=== PATIENT | male | born 1960 | race Caucasian/White ===

== ENCOUNTER 2016-04-07 21:10 | Emergency (ER) | payer OTHER ==
[~2016-04-07 21:10] MED LIST: FURO1TAB93 PO; LACT20SO4 PO; NADO1TAB16 PO; OMEP20TA39 PO; OXYC5 PO; PREG100 PO; RIFA550 PO; SERT-132 PO; SPIR25 PO; VARE1 PO
[2016-04-07 21:15] VITALS: BP 125/70; PULSE 70; RESP 20; TEMP 98.1; O2SAT 94
[2016-04-07] MEDS ORDERED: SODIUM CHLORIDE 0.9% FLUSH 5 ML FLUSH IVF PRN (21:30)
--- NOTE | 2016-04-07 21:47 | RADRPT ---
EXAM DATE/TIME: 04/07/2016 21:36 [place] COMPARISON: CHEST SINGLE AP, December 23, 2015, 12:25. INDICATIONS : Shortness of breath. MEDICAL HISTORY : None. SURGICAL HISTORY : None. ENCOUNTER: Initial ACUITY: 1 day PAIN SCORE: 0/10 LOCATION: Bilateral chest FINDINGS: The heart size is normal. There is some mild increased density identified at the bases . The mid and upper lungs are clear. No effusion is seen. There is an anterior cervical fusion karlos te present. CONCLUSION: Minimally increased density identified at the bases likely representing some mild ate lectasis or consolidation. Yassine Hermosillo MD on April 07, 2016 at 21:43 Board Certified Radiologist. This report was verified electronically.
[2016-04-07 22:02] LABS: APTT (PATIENT) 29.5 SEC (24.3-30.1); INTERNATIONAL NORMALIZED RATIO 1.2 RATIO; PROTHROMBIN TIME - PATIENT 13.5 SEC (9.8-11.6)
[2016-04-07 22:20] LABS: AUTOMATED NEUTROPHIL # 2.2 TH/MM3 (1.8-7.7); BASOPHIL # 0.1 TH/MM3 (0-0.2); BASOPHIL % 2.2 % (0.0-2.0); EOSINOPHIL # 0.5 TH/MM3 (0-0.4); EOSINOPHIL % 9.7 % (0.0-4.0); HEMATOCRIT 44.4 % (39.0-51.0); LYMPH % 39.3 % (9.0-44.0); LYMPHOCYTE # 2.2 TH/MM3 (1.0-4.8); MEAN CORPUSCULAR HEMOGLOBIN 32.2 PG (27.0-34.0); MEAN CORPUSCULAR HGB CONC 34.6 % (32.0-36.0); NEUT % 39.8 % (16.0-70.0); PLATELET COUNT 80 TH/MM3 (150-450); RED BLOOD COUNT 4.77 MIL/MM3 (4.50-5.90); RED CELL DISTRIBUTION WIDTH 14.5 % (11.6-17.2); WHITE BLOOD COUNT 5.6 TH/MM3 (4.0-11.0)
[2016-04-07 22:27] LABS: HEMO FLAGS AUTO DIFF
[2016-04-07] MEDS ORDERED: LYRI100C PO (22:36)
[2016-04-07] MEDS ORDERED: AMPH1TAB29 PO (22:36)
[2016-04-07 22:38] LABS: ALKALINE PHOSPHATASE 319 U/L (45-117); ALT (GPT) 20 U/L (12-78); ANION GAP 11 MEQ/L (5-15); AST (GOT) 29 U/L (15-37); BICARBONATE 23.7 MEQ/L (21.0-32.0); BLOOD UREA NITROGEN 5 MG/DL (7-18); CHLORIDE 105 MEQ/L (98-107); GLOMERULAR FILTRATION RATE 95 ML/MIN (>89); POTASSIUM 3.6 MEQ/L (3.5-5.1); SODIUM (NA) 140 MEQ/L (136-145); TOTAL BILIRUBIN ADULT 1.5 MG/DL (0.2-1.0)
[2016-04-07 22:40] LABS: BLOOD, URINE NEG (NEG); COMMENT (UR) CATH-CULT NOT IND; CULTURE IF INDICATED CATH CULTURE NOT IND; GLUCOSE,URINE NEG (NEG); KETONE, URINE NEG (NEG); NITRITE,URINE NEG (NEG); URINE COLOR YELLOW (YELLW/STRAW)
[2016-04-07 22:45] LABS: ACETAMINOPHEN LESS THAN 2.0 MCG/ML (10.0-30.0)
[2016-04-07 23:00] VITALS: BP 107/61; PULSE 70; RESP 16; O2SAT 93
[2016-04-07 23:20] LABS: PLATELET ESTIMATE SMEAR LOW (NORMAL); SCAN/DIFF AUTO DIFF CONFIRMED
[2016-04-07 23:30] VITALS: BP 119/58; PULSE 58; RESP 14; O2SAT 89
[2016-04-08 02:07] VITALS: BP 129/67; PULSE 61; RESP 14; O2SAT 96
--- NOTE | 2016-04-08 02:17 | PD ---
HPI Chief Complaint: OD/ Ingestion Time Seen by Provider: 21:22 Travel History International Travel<30 days: No Contact w/Intl Traveler<30days: No Traveled to known affect area: No History of Present Illness HPI Patient 55-year-old male presents today intoxicated on Cooper act for intentional suicide attempt with overdose of Lyrica. Per EMS Lyrica bottle was found on scene and the patient is missing approximately 44 pills. Unclear as to whether he took all these are once has been taking them as prescribed. On arrival patient pleasantly intoxicated and has no complaints currently. Denies any chest pain about pain nausea vomiting diarrhea. He does have a history of liver disease well. 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 Coronary Artery Bypass Graft: No Insulin Pump: No Joint Replacement: No Neurologic Surgery: Yes (Spinal fusions C3-C7, neck and lower back x5) Oral Surgery: Yes (Tooth extractions) Pacemaker: No Tonsillectomy: Yes Other Surgery: Yes (LOW BACK SURGERY X 2) Family History Family Myocardial Infarction: Yes Social History Alcohol Use: Yes (1/2 GALLON DAILY) Tobacco Use: Yes (1 PPD) Substance Use: Yes (MARIJUANA, COCAINE, HEROIN) Allergies-Medications (Allergen,Severity, Reaction): Coded Allergies: Gabapentin (Verified Adverse Reaction, Severe, 04/07/16) Reported Meds & Prescriptions Reported Meds & Active Scripts Active Reported Adderall (Amphetamine-Dextroamphetamine) 5 Mg Tab 5 Mg PO BID Avoid late evening doses. Space doses at least 4 to 6 hours if more than once/day dosing. Lyrica (Pregabalin) 100 Mg Cap 100 Mg PO BID Review of Systems Except as stated in HPI: all other systems reviewed are Neg Physical Exam Narrative GENERAL: Well-developed well-nourished no apparent distress, pleasantly intoxicated. SKIN: Warm and dry. HEAD: Atraumatic. Normocephalic. EYES: Pupils equal and round. No scleral icterus. No injection or drainage. ENT: No nasal bleeding or discharge. Mucous membranes pink and moist. NECK: Trachea midline. No JVD. CARDIOVASCULAR: Regular rate and rhythm. No murmur appreciated. RESPIRATORY: No accessory muscle use. Clear to auscultation. Breath sounds equal bilaterally. GASTROINTESTINAL: Abdomen soft, non-tender, nondistended. Hepatic and splenic margins not palpable. MUSCULOSKELETAL: No obvious deformities. No clubbing. No cyanosis. No edema. NEUROLOGICAL: Awake and alert. No obvious cranial nerve deficits. Motor grossly within normal limits. Normal speech. PSYCHIATRIC: Appropriate mood and affect; insight and judgment normal. Data Data Last Documented VS Vital Signs Date Time Temp Pulse Resp B/P Pulse Ox O2 Delivery O2 Flow Rate FiO2 04/08/16 11:23 82 18 126/66 100 04/08/16 11:06 Room Air 04/08/16 02:07 1 04/07/16 21:15 98.1 Orders Electrocardiogram (04/07/16 21:22) Alcohol (Ethanol) (04/07/16 21:22) Ammonia (04/07/16 21:22) Complete Blood Count With Diff (04/07/16 21:22) Comprehensive Metabolic Panel (04/07/16 21:22) Drug Screen, Random Urine (04/07/16 21:22) Prothrombin Time / Inr (Pt) (04/07/16 21:22) Act Partial Throm Time (Ptt) (04/07/16 21:22) Salicylates (Aspirin) (04/07/16 21:22) Troponin I (04/07/16 21:22) Tylenol (Acetaminophen) (04/07/16 21:22) Thyroid Stimulating Hormone (04/07/16 21:22) Urinalysis - C+S If Indicated (04/07/16 21:22) Chest, Single Ap (04/07/16 21:22) Blood Glucose (04/07/16 21:22) Ecg Monitoring (04/07/16 21:22) Iv Access Insert/Monitor (04/07/16 21:22) Oximetry (04/07/16 21:22) Sodium Chloride 0.9% Flush (Ns Flush) (04/07/16 21:30) Psych Screen (04/08/16 02:17) Chlordiazepoxide (Librium) (04/08/16 09:30) Acetaminophen (Tylenol) (04/08/16 09:30) Alcohol Withdrawal Asmt-Ciwa [id number] (04/08/16 10:31) Flumazenil Inj (Romazicon Inj) (04/08/16 10:45) Lorazepam (Ativan) (04/08/16 10:45) Lorazepam Inj (Ativan Inj) (04/08/16 10:45) Lorazepam (Ativan) (04/08/16 10:45) Lorazepam Inj (Ativan Inj) (04/08/16 10:45) Lorazepam Inj (Ativan Inj) (04/08/16 10:45) Lorazepam Inj (Ativan Inj) (04/08/16 10:45) ^ Seizure Precautions (04/08/16 10:38) Labs Laboratory Tests Test 04/07/16 04/07/16 04/07/16 21:30 21:38 22:00 White Blood Count 5.6 TH/MM3 Red Blood Count 4.77 MIL/MM3 Hemoglobin 15.3 GM/DL Hematocrit 44.4 % Mean Corpuscular Volume 93.0 FL Mean Corpuscular Hemoglobin 32.2 PG Mean Corpuscular Hemoglobin 34.6 % Concent Red Cell Distribution Width 14.5 % Platelet Count 80 TH/MM3 Mean Platelet Volume 8.2 FL Neutrophils (%) (Auto) 39.8 % Lymphocytes (%) (Auto) 39.3 % Monocytes (%) (Auto) 9.0 % Eosinophils (%) (Auto) 9.7 % Basophils (%) (Auto) 2.2 % Neutrophils # (Auto) 2.2 TH/MM3 Lymphocytes # (Auto) 2.2 TH/MM3 Monocytes # (Auto) 0.5 TH/MM3 Eosinophils # (Auto) 0.5 TH/MM3 Basophils # (Auto) 0.1 TH/MM3 CBC Comment AUTO DIFF Differential Comment AUTO DIFF CONFIRMED Platelet Estimate LOW Sodium Level 140 MEQ/L Potassium Level 3.6 MEQ/L Chloride Level 105 MEQ/L Carbon Dioxide Level 23.7 MEQ/L Anion Gap 11 MEQ/L Blood Urea Nitrogen 5 MG/DL Creatinine 0.83 MG/DL Estimat Glomerular Filtration 95 ML/MIN Rate Random Glucose 203 MG/DL Calcium Level 7.9 MG/DL Total Bilirubin 1.5 MG/DL Aspartate Amino Transf 29 U/L (AST/SGOT) Alanine Aminotransferase 20 U/L (ALT/SGPT) Alkaline Phosphatase 319 U/L Troponin I LESS THAN 0.02 NG/ML Total Protein 7.6 GM/DL Albumin 3.1 GM/DL Thyroid Stimulating Hormone 2.250 uIU/ML 3rd Gen Salicylates Level LESS THAN 1.7 MG/DL Acetaminophen Level LESS THAN 2.0 MCG/ML Ethyl Alcohol Level 216 MG/DL Prothrombin Time 13.5 SEC Prothromb Time International 1.2 RATIO Ratio Activated Partial 29.5 SEC Thromboplast Time Ammonia 91 MCMOL/L Urine Color YELLOW Urine Turbidity CLEAR Urine pH 6.0 Urine Specific [place] 1.006 Urine Protein NEG mg/dL Urine Glucose (UA) NEG mg/dL Urine Ketones NEG mg/dL Urine Occult Blood NEG Urine Nitrite NEG Urine Bilirubin NEG Urine Urobilinogen 2.0 MG/DL Urine Leukocyte Esterase NEG Urine RBC LESS THAN 1 /hpf Urine WBC 1 /hpf Microscopic Urinalysis Comment CATH-CULT NOT IND Urine Opiates Screen NEG Urine Barbiturates Screen NEG Urine Amphetamines Screen NEG Urine Benzodiazepines Screen NEG Urine Cocaine Screen NEG Urine Cannabinoids Screen NEG MDM Medical Decision Making Medical Screen Exam Complete: Yes Emergency Medical Condition: Yes Differential Diagnosis Lyrica overdose, intoxication, hepatic encephalopathy unlikely, suicidal attempt. Narrative Course Physical 55-year-old male presents emergency department for alcohol intoxication and intentional overdose of Lyrica. Patient had approximate 44 pills missing from the Lyrica bottle. Patient denies any other ingestion tonight. He is been observed in the emergency department for 5-1/2 hours. After discussion with poison control this appears to be an adequate amount of time to observe him. He is medically cleared for psychiatric evaluation at this time. Diagnosis Primary Impression: Overdose Additional Impression: Suicide attempt Condition: Stable Coleman Stahl MD Apr 08, 2016 02:17
[2016-04-08 04:00] VITALS: BP 113/62; PULSE 66; RESP 20; O2SAT 95
[2016-04-08 04:17] LABS: AMPHETAMINE, URINE NEG (NEG); BARBITURATES, URINE NEG (NEG); COCAINE, URINE NEG (NEG)
[2016-04-08 06:00] VITALS: BP 133/79; PULSE 61; RESP 18; O2SAT 96
[2016-04-08 09:24] VITALS: BP 149/68; PULSE 79; RESP 18; O2SAT 100
[2016-04-08] MEDS ORDERED: chlordiazePOXIDE 25 MG CAP PO PRN (09:30)
[2016-04-08] MEDS: ACETAMINOPHEN 500 MG CPLT PO ONE ×2 (09:30→09:32)
[2016-04-08] MEDS ORDERED: LORazepam 2 MG TAB PO PRN (10:45)
[2016-04-08] MEDS ORDERED: LORazepam 2 MG/ML VIAL IM PRN ×4 (10:45)
[2016-04-08] MEDS ORDERED: FLUMAZENIL 0.5 MG/5 ML VIAL IV PUSH PRN (10:45)
[2016-04-08] MEDS ORDERED: LORazepam 1 MG TAB PO PRN (10:45)
[2016-04-08 11:06] VITALS: BP 146/86; PULSE 79; RESP 18; O2SAT 100
[2016-04-08 11:23] VITALS: BP 126/66
--- NOTE | 2016-04-08 13:00 | MB ---
cc: ALESSANDRO MOJICA DATE OF CONSULTATION: 04/08/2016 PHYSICIAN REQUESTING CONSULTATION: Emergency department. REASON FOR CONSULTATION: Cooper ACT HISTORY OF PRESENT ILLNESS Mr. Zayas is a 55-year-old male with a reported history of alcohol dependence who presents under a Cooper ACT from [place] [employer] alleging that the patient stated that he took 60 pills and did not want to live anymore. Reviewing the electronic medical record, I see no prior psychiatric contact within our system. Of note the patient's alcohol level was elevated on presentation here at 216. The patient was seen and examined. Chart reviewed. Case discussed with nursing staff. In fact, the patient appears to have overdose on Lyrica. On my examination this morning the patient is clinically sober and beginning to withdraw. He says that he had gotten into an argument with his and had been drinking heavily and so "I filled my mouth with pills. I do remember. I am sick of all this bullshit. I cannot get no help." He endorses ongoing thoughts of self-harm. Mood is depressed. Affect is dysphoric. Denies current AVH but has experienced AVH in the past. No evident delusions. No hypomanic, manic symptoms. The remainder of the psychiatric ROS is negative. PAST PSYCHIATRIC HISTORY Prior diagnosis of alcohol dependence. He sees a female psychiatrist at the [place] but cannot recall a name. He says he was admitted 17 years ago after an overdose on pills and alcohol. He reports that in addition to that suicide attempt, he also tried to shoot of self in his 40s. FAMILY HISTORY The patient denies family history of serious mental illness or suicide. His mother reportedly struggled with alcohol use issues. CHEMICAL DEPENDENCY HISTORY: The patient reports he has been drinking a gallon of rum per day. His last use was just prior to admission. He reports a history of DTs and seizures in the past. His longest sober time was 11 years with the help of AA. He also smokes some cannabis. 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 SOCIAL HISTORY The patient reports he has a [employer] . He never saw combat having joint after [place]. He is to his second of 10 years. He has a son in [place]. He also has a grandson. Denies any legal history. He is high school educated and presently on disability. Denies any access to guns or firearms. PAST MEDICAL HISTORY Includes a history of hepatitis C status post treatment with [facility]. He also has a history of vertebral back fractures in the past. REVIEW OF SYSTEMS Besides tremulousness and sweatiness from withdrawal, no other acute physical complaints. PHYSICAL EXAMINATION Physical examination was completed in the emergency room by the ER staff. The patient was medically cleared. On my examination today, the patient appears tremulous and diaphoretic. No mydriasis. No other signs of withdrawal noted. No other abnormal motor movements noted. Labs and vital signs reviewed. MENTAL STATUS EXAM The patient is in hospital gown. He is somewhat disheveled but maintaining basic hygiene. He is awake, alert and oriented x3. No evidence of delirium. Motoric abnormalities as noted above. Speech is within normal limits for rate, tone and volume. Language and fund of knowledge seem adequate and appropriate for age. Mood is depressed and affect is restricted. Thought process linear. No loosening of associations. No evident delusions. Denies audiovisual hallucinations. Endorses ongoing suicidal ideation without specific plan or intent. No homicidal ideation. Insight and judgment are poor. ASSESSMENT/PLAN 1. Alcohol dependence with alcohol-induced mood disorder, S1 0.24 This is a 55-year-old male with psychiatric history as detailed above who presents under Cooper ACT after making an overdose of Lyrica in the setting of alcohol intoxication. The patient endorses some vague ongoing suicidal thoughts as well as depressive symptoms, I suspect largely substance-induced. The patient does have severe alcohol use issues. I believe therefore that are treatment should focus on both of these issues both his mood and alcohol use issues. I therefore instructed the nursing staff to refer the patient to a dual diagnosis unit and the patient has been accepted at the [facility]. The patient will be retained under the Cooper ACT until transport can be arranged to the [facility]. In the meantime I will place him on a CIWA scale with Ativan for the management of any withdrawal. Thank you very much for this consultation. Alessandro Mojica DC/alen /10:35 AM /12:53 PM [facility] SYSTEMBenjamin
--- NOTE | 2016-04-08 14:21 | EKG ---
Date Performed: 04/07/2016 Time Performed: 21:13:51 PTAGE: 55 years EKG: Sinus rhythm POSSIBLE LEFT ATRIAL ENLARGEMENT INCOMPLETE RIGHT BUNDLE BRANCH BLOCK POSSIBLE LEFT VENTRICULAR HYPE RTROPHY ABNORMAL ECG Compared to prior tracing no significant change PREVIOUS TRACING : 12/23/2015 18.55 DOCTOR: Jackson Tracy Interpretating Date/Time 04/08/2016 14:17:59
== END 2016-04-08 11:28 | disposition short-term general hospital (02) ==
LOC: NEPC 21:10 → NEPA 04-08 11:28
DX: T42.6X2A Poisoning by other antiepileptic and sedative-hypnotic drugs, intentional self-harm, initial encounter (principal); F32.9 Major depressive disorder, single episode, unspecified; R06.02 Shortness of breath; F17.210 Nicotine dependence, cigarettes, uncomplicated; F10.24 Alcohol dependence with alcohol-induced mood disorder; Y90.7 Blood alcohol level of 200-239 mg/100 ml
CPT/HCPCS: 71010; 80053; 80307; 81001; 82140; 84443; 84484; 85025; 85610; 85730; 93005; 99284; G0480; 80320; 80329; G0481

== ENCOUNTER 2016-07-04 08:22 | Emergency (ER) | payer OTHER ==
[~2016-07-04] VITALS: Ht 180.3 cm; Wt 97.0 kg
[~2016-07-04 08:22] MED LIST changes: +AMPH1TAB29 PO; -FURO1TAB93 PO; -LACT20SO4 PO; +LYRI100C PO; -NADO1TAB16 PO; -OMEP20TA39 PO; -OXYC5 PO; -PREG100 PO; -RIFA550 PO; -SERT-132 PO; -SPIR25 PO; -VARE1 PO
[2016-07-04 08:38] VITALS: BP 126/79; PULSE 74; RESP 18; TEMP 98.2; O2SAT 94
--- NOTE | 2016-07-04 08:49 | PD ---
HPI Chief Complaint: Psychiatric Symptoms Time Seen by Provider: 08:40 Travel History International Travel<30 days: No Contact w/Intl Traveler<30days: No Traveled to known affect area: No History of Present Illness HPI The patient is a 55-year-old male who presents emergency department as a Cooper act. According to the police affidavit the patient is experiencing suicidal ideation. The patient does have a history of depression with previous suicidal ideation and suicide attempt by overdosing on alcohol and pain medications. The patient states he has been drinking heavily over the last several days, vodka and beer. The patient is having thoughts of suicide, however, does not have an actual suicidal plan. The patient also smokes marijuana occasionally. The patient denies any hallucinations or delusions. The patient's symptoms are moderate, there are no alleviating or exacerbating factors. 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 Coronary Artery Bypass Graft: No Insulin Pump: No Joint Replacement: No Neurologic Surgery: Yes (Spinal fusions C3-C7, neck and lower back x5) Oral Surgery: Yes (Tooth extractions) Pacemaker: No Tonsillectomy: Yes Other Surgery: Yes (LOW BACK SURGERY X 2) Family History Family Myocardial Infarction: Yes Social History Alcohol Use: Yes (1/2 GALLON DAILY) Tobacco Use: Yes (1 PPD) Substance Use: Yes (MARIJUANA, COCAINE, HEROIN) Allergies-Medications (Allergen,Severity, Reaction): Coded Allergies: Gabapentin (Verified Adverse Reaction, Severe, 04/07/16) Reported Meds & Prescriptions Reported Meds & Active Scripts Active Reported Adderall (Amphetamine-Dextroamphetamine) 5 Mg Tab 5 Mg PO BID Avoid late evening doses. Space doses at least 4 to 6 hours if more than once/day dosing. Lyrica (Pregabalin) 100 Mg Cap 100 Mg PO BID Review of Systems Except as stated in HPI: all other systems reviewed are Neg General / Constitutional: No: Fever Cardiovascular: No: Chest Pain or Discomfort Respiratory: No: Shortness of Breath Gastrointestinal: Positive: Other (history of hepatitis C, cared via treatment per patient's report), No: Nausea, Vomiting, Abdominal Pain Psychiatric: Positive: Depression, Suicidal Ideations, Substance Abuse ( alcohol abuse), No: Homicidal Ideation Physical Exam Narrative GENERAL: Awake, alert, 55-year-old male who appears his stated age and is in no acute respiratory distress. SKIN: Focused skin assessment warm/dry. HEAD: Atraumatic. Normocephalic. EYES: Pupils are 4 mm bilateral and reactive. ENT: No nasal bleeding or discharge. Breath smells of alcohol. NECK: Trachea midline. No JVD. CARDIOVASCULAR: Regular rate and rhythm. No murmur appreciated. RESPIRATORY: No accessory muscle use. Clear to auscultation. Breath sounds equal bilaterally. GASTROINTESTINAL: Abdomen soft, obese, hepatomegaly noted. No rebound tenderness. MUSCULOSKELETAL: No obvious deformities. No clubbing. No cyanosis. No edema. NEUROLOGICAL: Awake and alert. No obvious cranial nerve deficits. Motor grossly within normal limits. Normal speech. No asterixis noted. Nonfocal. PSYCHIATRIC: Slightly flat affect. Data Data Last Documented VS Vital Signs Date Time Temp Pulse Resp B/P Pulse Ox O2 Delivery O2 Flow Rate FiO2 07/04/16 08:38 73 18 07/04/16 08:38 98.2 126/79 94 Room Air Orders Complete Blood Count With Diff (07/04/16 08:45) Comprehensive Metabolic Panel (07/04/16 08:45) Psych Screen (07/04/16 08:45) Drug Screen, Random Urine (07/04/16 08:45) Alcohol (Ethanol) (07/04/16 08:45) Labs Laboratory Tests Test 07/04/16 08:48 White Blood Count 5.3 TH/MM3 Red Blood Count 4.80 MIL/MM3 Hemoglobin 15.1 GM/DL Hematocrit 45.0 % Mean Corpuscular Volume 93.9 FL Mean Corpuscular Hemoglobin 31.5 PG Mean Corpuscular Hemoglobin 33.5 % Concent Red Cell Distribution Width 15.6 % Platelet Count 84 TH/MM3 Mean Platelet Volume 7.3 FL Neutrophils (%) (Auto) 47.5 % Lymphocytes (%) (Auto) 31.5 % Monocytes (%) (Auto) 10.4 % Eosinophils (%) (Auto) 10.0 % Basophils (%) (Auto) 0.6 % Neutrophils # (Auto) 2.5 TH/MM3 Lymphocytes # (Auto) 1.7 TH/MM3 Monocytes # (Auto) 0.5 TH/MM3 Eosinophils # (Auto) 0.5 TH/MM3 Basophils # (Auto) 0.0 TH/MM3 CBC Comment AUTO DIFF Sodium Level 139 MEQ/L Potassium Level 3.9 MEQ/L Chloride Level 106 MEQ/L Carbon Dioxide Level 22.9 MEQ/L Anion Gap 10 MEQ/L Blood Urea Nitrogen 5 MG/DL Creatinine 0.77 MG/DL Estimat Glomerular Filtration 104 ML/MIN Rate Random Glucose 159 MG/DL Calcium Level 8.3 MG/DL Total Bilirubin 1.2 MG/DL Aspartate Amino Transf 37 U/L (AST/SGOT) Alanine Aminotransferase 27 U/L (ALT/SGPT) Alkaline Phosphatase 219 U/L Total Protein 7.7 GM/DL Albumin 3.3 GM/DL Urine Opiates Screen NEG Urine Barbiturates Screen NEG Urine Amphetamines Screen NEG Urine Benzodiazepines Screen NEG Urine Cocaine Screen NEG Urine Cannabinoids Screen NEG Ethyl Alcohol Level 232 MG/DL MDM Medical Decision Making Medical Screen Exam Complete: Yes Emergency Medical Condition: Yes Medical Record Reviewed: Yes Interpretation(s) Laboratory Tests Test 07/04/16 08:48 White Blood Count 5.3 TH/MM3 Red Blood Count 4.80 MIL/MM3 Hemoglobin 15.1 GM/DL Hematocrit 45.0 % Mean Corpuscular Volume 93.9 FL Mean Corpuscular Hemoglobin 31.5 PG Mean Corpuscular Hemoglobin 33.5 % Concent Red Cell Distribution Width 15.6 % Platelet Count 84 TH/MM3 Mean Platelet Volume 7.3 FL Neutrophils (%) (Auto) 47.5 % Lymphocytes (%) (Auto) 31.5 % Monocytes (%) (Auto) 10.4 % Eosinophils (%) (Auto) 10.0 % Basophils (%) (Auto) 0.6 % Neutrophils # (Auto) 2.5 TH/MM3 Lymphocytes # (Auto) 1.7 TH/MM3 Monocytes # (Auto) 0.5 TH/MM3 Eosinophils # (Auto) 0.5 TH/MM3 Basophils # (Auto) 0.0 TH/MM3 CBC Comment AUTO DIFF Sodium Level 139 MEQ/L Potassium Level 3.9 MEQ/L Chloride Level 106 MEQ/L Carbon Dioxide Level 22.9 MEQ/L Anion Gap 10 MEQ/L Blood Urea Nitrogen 5 MG/DL Creatinine 0.77 MG/DL Estimat Glomerular Filtration 104 ML/MIN Rate Random Glucose 159 MG/DL Calcium Level 8.3 MG/DL Total Bilirubin 1.2 MG/DL Aspartate Amino Transf 37 U/L (AST/SGOT) Alanine Aminotransferase 27 U/L (ALT/SGPT) Alkaline Phosphatase 219 U/L Total Protein 7.7 GM/DL Albumin 3.3 GM/DL Urine Opiates Screen NEG Urine Barbiturates Screen NEG Urine Amphetamines Screen NEG Urine Benzodiazepines Screen NEG Urine Cocaine Screen NEG Urine Cannabinoids Screen NEG Ethyl Alcohol Level 232 MG/DL Differential Diagnosis Differential diagnosis includes depressive disorder NOS, bipolar affective disorder, mood disorder NOS, substance induced mood disorder, alcohol abuse. Narrative Course Labs were drawn and sent. Psychiatric evaluation was ordered. Labs were noted , bilirubin mildly elevated at 1.2, patient does have a history of hepatitis C and cirrhosis. Patient's alcohol level is elevated at 232. Patient is medically clear to be evaluated by psychiatry. Disposition as per psych. Diagnosis Primary Impression: Substance induced mood disorder Additional Impression: Alcohol abuse Condition: Stable Lang Chan MD Jul 04, 2016 08:49
[2016-07-04 09:05] LABS: AUTOMATED NEUTROPHIL # 2.5 TH/MM3 (1.8-7.7); BASOPHIL % 0.6 % (0.0-2.0); EOSINOPHIL # 0.5 TH/MM3 (0-0.4); LYMPH % 31.5 % (9.0-44.0); LYMPHOCYTE # 1.7 TH/MM3 (1.0-4.8); MEAN CELL VOLUME 93.9 FL (80.0-100.0); MEAN CORPUSCULAR HEMOGLOBIN 31.5 PG (27.0-34.0); MEAN CORPUSCULAR HGB CONC 33.5 % (32.0-36.0); MONO % 10.4 % (0.0-8.0); NEUT % 47.5 % (16.0-70.0); PLATELET COUNT 84 TH/MM3 (150-450); RED CELL DISTRIBUTION WIDTH 15.6 % (11.6-17.2); WHITE BLOOD COUNT 5.3 TH/MM3 (4.0-11.0)
[2016-07-04 09:09] LABS: HEMO FLAGS AUTO DIFF
[2016-07-04 09:14] LABS: AMPHETAMINE, URINE NEG (NEG); BARBITURATES, URINE NEG (NEG); COCAINE, URINE NEG (NEG)
[2016-07-04 09:21] LABS: ANION GAP 10 MEQ/L (5-15); AST (GOT) 37 U/L (15-37); BICARBONATE 22.9 MEQ/L (21.0-32.0); BLOOD UREA NITROGEN 5 MG/DL (7-18); CHLORIDE 106 MEQ/L (98-107); GLOMERULAR FILTRATION RATE 104 ML/MIN (>89); POTASSIUM 3.9 MEQ/L (3.5-5.1); SODIUM (NA) 139 MEQ/L (136-145)
[2016-07-04 09:24] LABS: ALKALINE PHOSPHATASE 219 U/L (45-117); ALT (GPT) 27 U/L (12-78); TOTAL BILIRUBIN ADULT 1.2 MG/DL (0.2-1.0)
[2016-07-04 09:46] LABS: PLATELET ESTIMATE SMEAR LOW (NORMAL); PLATELET MORPHOLOGY NORMAL (NORMAL); SCAN/DIFF AUTO DIFF CONFIRMED
[2016-07-04 10:31] VITALS: BP 105/59; PULSE 67; RESP 18; O2SAT 95
[2016-07-04] MEDS ORDERED: oxyCODONE/ACETAMINOPHEN 5 MG/325 MG TAB PO ONE (11:00)
[2016-07-04 12:37] VITALS: BP 103/65; PULSE 63; RESP 18; O2SAT 95
[2016-07-04 17:31] VITALS: BP 133/71; PULSE 66; RESP 18; TEMP 96.8; O2SAT 95
[2016-07-04] MEDS ORDERED: LORazepam 2 MG/ML VIAL IV PUSH PRN ×4 (18:45)
[2016-07-04] MEDS ORDERED: LORazepam 2 MG TAB PO PRN (18:45)
[2016-07-04] MEDS ORDERED: FLUMAZENIL 0.5 MG/5 ML VIAL IV PUSH PRN (18:45)
[2016-07-04] MEDS: LORazepam 1 MG TAB PO PRN (19:49)
[2016-07-04 22:12] VITALS: BP 135/64; PULSE 69; RESP 18; O2SAT 95
[2016-07-05 02:14] VITALS: BP 140/73; PULSE 65; RESP 19; O2SAT 95
[2016-07-05 06:34] VITALS: BP 130/60; PULSE 64; RESP 19; O2SAT 97
[2016-07-05] MEDS: LORazepam 1 MG TAB PO PRN (10:38)
== END 2016-07-05 14:10 ==
LOC: NEPE 08:22 → NEPJ 07-05 14:10
DX: F10.14 Alcohol abuse with alcohol-induced mood disorder (principal); Y90.7 Blood alcohol level of 200-239 mg/100 ml; F32.9 Major depressive disorder, single episode, unspecified; K74.60 Unspecified cirrhosis of liver; Z72.0 Tobacco use
CPT/HCPCS: 80053; 80307; 85025; 99284

== ENCOUNTER 2016-10-16 06:49 | Emergency (ER) | payer OTHER ==
[~2016-10-16] VITALS: Ht 175.3 cm; Wt 100.0 kg
[~2016-10-16 06:49] MED LIST changes: -LYRI100C PO
[2016-10-16 06:59] VITALS: BP 135/86; PULSE 85; RESP 18; TEMP 98.1; O2SAT 95
--- NOTE | 2016-10-16 08:07 | PD ---
HPI Chief Complaint: Medical Clearance Time Seen by Provider: 07:15 Travel History International Travel<30 days: No Contact w/Intl Traveler<30days: No Traveled to known affect area: No History of Present Illness HPI 56-year-old male brought in under [employer] act by enforcement. According to the paperwork patient was at [facility] when TSH inspection found 3 pills on the patient. While the police were interviewing the patient he reported having a previous history of opiate abuse for his chronic pain. He also reports history of alcoholism. According to the paperwork while he was being interviewed the patient gave a lengthy mental health history which included several suicide attempts in the past. This prompted the police to feel that he needed evaluation today. He did not state that he was suicidal or homicidal according to the paperwork. He denies homicidal or suicidal ideation to myself. He reports the pills were Bono was 5//25 which she received from a friend and he was going to take them if he had back pain on the flight. He reports that he was going to visit a friend in [place] where he was hoping to get his life back in order. Patient reports he is a and receives mental [facility] care from the [facility]. He denies any alcohol use. He reports taking one of the Bono was 5/325 today. No other drug use. 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 Coronary Artery Bypass Graft: No Insulin Pump: No Joint Replacement: No Neurologic Surgery: Yes (Spinal fusions C3-C7, neck and lower back x5) Oral Surgery: Yes (Tooth extractions) Pacemaker: No Tonsillectomy: Yes Other Surgery: Yes (LOW BACK SURGERY X 2) Family History Family Myocardial Infarction: Yes Social History Alcohol Use: No (FORMER- SOBER 31 DAYS) Tobacco Use: Yes (1/3 PPD) Substance Use: Yes (MARIJUANA) Allergies-Medications (Allergen,Severity, Reaction): Coded Allergies: Gabapentin (Verified Adverse Reaction, Severe, 10/16/16) Reported Meds & Prescriptions Reported Meds & Active Scripts Active Reported Adderall (Amphetamine-Dextroamphetamine) 5 Mg Tab 5 Mg PO BID Avoid late evening doses. Space doses at least 4 to 6 hours if more than once/day dosing. Review of Systems Except as stated in HPI: all other systems reviewed are Neg Psychiatric: No: Depression Physical Exam Narrative GENERAL: Well-nourished, well-developed patient. Patient does not appear intoxicated or impaired. SKIN: Focused skin assessment warm/dry. HEAD: Normocephalic. EYES: No scleral icterus. No injection or drainage. NECK: Supple, trachea midline. No JVD or lymphadenopathy. CARDIOVASCULAR: Regular rate and rhythm without murmurs, gallops, or rubs. RESPIRATORY: Breath sounds equal bilaterally. No accessory muscle use. GASTROINTESTINAL: Abdomen soft, non-tender, nondistended. MUSCULOSKELETAL: No cyanosis, or edema. BACK: Nontender without obvious deformity. No CVA tenderness. PSYCHIATRIC: No delusional thought processes. No hallucinations. Insight and judgment intact. Data Data Last Documented VS Vital Signs Date Time Temp Pulse Resp B/P Pulse Ox O2 Delivery O2 Flow Rate FiO2 10/16/16 07:03 91 18 10/16/16 06:59 98.1 135/86 95 Orders Complete Blood Count With Diff (10/16/16 07:57) Comprehensive Metabolic Panel (10/16/16 07:57) Drug Screen, Random Urine (10/16/16 07:57) Alcohol (Ethanol) (10/16/16 07:57) Salicylates (Aspirin) (10/16/16 07:57) Tylenol (Acetaminophen) (10/16/16 07:57) Labs Laboratory Tests Test 10/16/16 08:10 White Blood Count 4.6 TH/MM3 Red Blood Count 4.73 MIL/MM3 Hemoglobin 15.0 GM/DL Hematocrit 43.5 % Mean Corpuscular Volume 92.0 FL Mean Corpuscular Hemoglobin 31.6 PG Mean Corpuscular Hemoglobin 34.4 % Concent Red Cell Distribution Width 13.9 % Platelet Count 70 TH/MM3 Mean Platelet Volume 7.3 FL Neutrophils (%) (Auto) 62.1 % Lymphocytes (%) (Auto) 22.3 % Monocytes (%) (Auto) 7.1 % Eosinophils (%) (Auto) 4.3 % Basophils (%) (Auto) 4.2 % Neutrophils # (Auto) 2.8 TH/MM3 Lymphocytes # (Auto) 1.0 TH/MM3 Monocytes # (Auto) 0.3 TH/MM3 Eosinophils # (Auto) 0.2 TH/MM3 Basophils # (Auto) 0.2 TH/MM3 CBC Comment AUTO DIFF Sodium Level 139 MEQ/L Potassium Level 3.9 MEQ/L Chloride Level 106 MEQ/L Carbon Dioxide Level 23.1 MEQ/L Anion Gap 10 MEQ/L Blood Urea Nitrogen 10 MG/DL Creatinine 0.95 MG/DL Estimat Glomerular Filtration 81 ML/MIN Rate Random Glucose 156 MG/DL Calcium Level 8.9 MG/DL Total Bilirubin 1.5 MG/DL Aspartate Amino Transf 26 U/L (AST/SGOT) Alanine Aminotransferase 21 U/L (ALT/SGPT) Alkaline Phosphatase 187 U/L Total Protein 7.8 GM/DL Albumin 3.5 GM/DL Salicylates Level LESS THAN 1.7 MG/DL Urine Opiates Screen NEG Acetaminophen Level LESS THAN 2.0 MCG/ML Urine Barbiturates Screen NEG Urine Amphetamines Screen NEG Urine Benzodiazepines Screen NEG Urine Cocaine Screen NEG Urine Cannabinoids Screen NEG Ethyl Alcohol Level LESS THAN 3 MG/DL MDM Medical Decision Making Medical Screen Exam Complete: Yes Emergency Medical Condition: Yes Differential Diagnosis Polysubstance abuse, medical screening exam Narrative Course 56-year-old male brought in under [employer] act after TSA inspection found 3 Bono's [place] airport. According to his paperwork the personnel training officer became concerned for the patient after the patient described a lengthy history of mental health illness, substance abuse, previous suicide attempts. Patient denies homicidal or suicidal ideation to the officers. He denies homicidal or suicidal weight ideation to myself. He does not appear intoxicated or impaired. He reports he was flying to [place] to visit a friend who was going to help get his life together. He reports he has abstained from alcohol for 30 days. He reports the pain medication was to help him through the flight for his chronic pain. Labs and tox screen pending. CBC unremarkable BMP unremarkable Tox screen: Negative Patient reevaluated. He again denies homicidal or suicidal ideation. His insight & judgement are intact. Patient is not intoxicated nor does he appear intoxicated. His plan is to stay with a friend in [place] who will act as his social support. I have no reason to believe that the patient is a harm to himself or to others. Psychiatric evaluation was offered to patient which he declined. He states that he has a psychiatrist and medical doctor through the [facility]. He is medically cleared and stable for discharge. Patient agrees to this plan. Diagnosis Primary Impression: Encounter for medical screening examination Referrals: Primary Care Physician Additional Instructions: Please follow-up with your psychiatrist and medical doctor with the [facility]. Return to the emergency department if he developed new or worsening symptoms. Disposition: 01 DISCHARGE HOME Condition: Stable Melyssa Mora Oct 16, 2016 08:07
[2016-10-16 08:35] LABS: AUTOMATED NEUTROPHIL # 2.8 TH/MM3 (1.8-7.7); BASOPHIL # 0.2 TH/MM3 (0-0.2); BASOPHIL % 4.2 % (0.0-2.0); EOSINOPHIL # 0.2 TH/MM3 (0-0.4); EOSINOPHIL % 4.3 % (0.0-4.0); HEMATOCRIT 43.5 % (39.0-51.0); LYMPH % 22.3 % (9.0-44.0); MEAN CORPUSCULAR HEMOGLOBIN 31.6 PG (27.0-34.0); MEAN CORPUSCULAR HGB CONC 34.4 % (32.0-36.0); MONO % 7.1 % (0.0-8.0); NEUT % 62.1 % (16.0-70.0); PLATELET COUNT 70 TH/MM3 (150-450); RED BLOOD COUNT 4.73 MIL/MM3 (4.50-5.90); RED CELL DISTRIBUTION WIDTH 13.9 % (11.6-17.2); WHITE BLOOD COUNT 4.6 TH/MM3 (4.0-11.0)
[2016-10-16 08:39] LABS: HEMO FLAGS AUTO DIFF
[2016-10-16 08:40] LABS: AMPHETAMINE, URINE NEG (NEG); BARBITURATES, URINE NEG (NEG); COCAINE, URINE NEG (NEG)
[2016-10-16 08:42] LABS: ANION GAP 10 MEQ/L (5-15)
[2016-10-16 08:51] LABS: ALKALINE PHOSPHATASE 187 U/L (45-117); ALT (GPT) 21 U/L (12-78); AST (GOT) 26 U/L (15-37); BICARBONATE 23.1 MEQ/L (21.0-32.0); BLOOD UREA NITROGEN 10 MG/DL (7-18); CHLORIDE 106 MEQ/L (98-107); GLOMERULAR FILTRATION RATE 81 ML/MIN (>89); POTASSIUM 3.9 MEQ/L (3.5-5.1); SODIUM (NA) 139 MEQ/L (136-145); TOTAL BILIRUBIN ADULT 1.5 MG/DL (0.2-1.0)
[2016-10-16 08:53] LABS: ACETAMINOPHEN LESS THAN 2.0 MCG/ML (10.0-30.0)
[2016-10-16 09:21] LABS: PLATELET ESTIMATE SMEAR LOW (NORMAL); PLATELET MORPHOLOGY NORMAL (NORMAL); SCAN/DIFF AUTO DIFF CONFIRMED
== END 2016-10-16 09:46 | disposition home or self-care (01) ==
LOC: NEPD 06:49
DX: G89.29 Other chronic pain (principal); F17.200 Nicotine dependence, unspecified, uncomplicated; Z86.59 Personal history of other mental and behavioral disorders; Z87.39 Personal history of other diseases of the musculoskeletal system and connective tissue; Z86.79 Personal history of other diseases of the circulatory system; Z87.19 Personal history of other diseases of the digestive system; Z86.69 Personal history of other diseases of the nervous system and sense organs
CPT/HCPCS: 80053; 80307; 85025; 99283

== ENCOUNTER 2016-10-28 09:42 | Emergency (ER) | payer OTHER ==
[~2016-10-28] VITALS: Ht 170.2 cm; Wt 98.0 kg
[2016-10-28 09:44] VITALS: BP 132/66; PULSE 89; RESP 16; TEMP 98.9; O2SAT 93
[2016-10-28] MEDS ORDERED: water pill (10:06)
[2016-10-28] MEDS ORDERED: antidepressant (10:06)
[2016-10-28] MEDS ORDERED: [UNRECOGNIZED DRUG - REMARK] (10:06)
[2016-10-28] MEDS ORDERED: [UNRECOGNIZED DRUG - OTHER] (10:06)
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
== END 2016-10-28 11:05 | disposition home or self-care (01) ==
LOC: PHED 09:42
DX: S70.01XA Contusion of right hip, initial encounter (principal); V43.52XA Car driver injured in collision with other type car in traffic accident, initial encounter
CPT/HCPCS: 73501; 99283

== ENCOUNTER 2016-10-30 15:07 | Emergency (ER) | payer OTHER ==
[~2016-10-30] VITALS: Ht 170.2 cm; Wt 98.0 kg
[~2016-10-30 15:07] MED LIST changes: +[UNRECOGNIZED DRUG - OTHER]; +[UNRECOGNIZED DRUG - REMARK]; +antidepressant; +water pill
[2016-10-30 15:09] VITALS: BP 137/74; PULSE 90; RESP 19; TEMP 99; O2SAT 94
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
[2016-10-30] MEDS ORDERED: ROBA500T PO (19:43)
[2016-10-30] MEDS ORDERED: DICL75TA PO (19:43)
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
== END 2016-10-30 20:19 | disposition home or self-care (01) ==
LOC: NEPK 15:07
DX: M54.5 Low back pain (principal); M54.16 Radiculopathy, lumbar region; K21.9 Gastro-esophageal reflux disease without esophagitis; F12.10 Cannabis abuse, uncomplicated; F17.290 Nicotine dependence, other tobacco product, uncomplicated
CPT/HCPCS: 99284

== ENCOUNTER 2017-02-09 14:53 | Emergency (ER) | payer OTHER ==
[~2017-02-09] VITALS: Ht 170.2 cm; Wt 82.0 kg
[~2017-02-09 14:53] MED LIST changes: +DICL75TA PO; +ROBA500T PO
[2017-02-09 15:33] VITALS: BP 122/68; PULSE 84; RESP 16; TEMP 98.4; O2SAT 95
[2017-02-09 16:11] LABS: AUTOMATED NEUTROPHIL # 3.3 TH/MM3 (1.8-7.7); BASOPHIL # 0.1 TH/MM3 (0-0.2); BASOPHIL % 1.3 % (0.0-2.0); EOSINOPHIL # 0.3 TH/MM3 (0-0.4); EOSINOPHIL % 4.8 % (0.0-4.0); HEMATOCRIT 46.2 % (39.0-51.0); LYMPH % 30.3 % (9.0-44.0); LYMPHOCYTE # 1.9 TH/MM3 (1.0-4.8); MEAN CELL VOLUME 90.5 FL (80.0-100.0); MEAN CORPUSCULAR HEMOGLOBIN 31.1 PG (27.0-34.0); MEAN CORPUSCULAR HGB CONC 34.3 % (32.0-36.0); MONO % 9.8 % (0.0-8.0); NEUT % 53.8 % (16.0-70.0); PLATELET COUNT 83 TH/MM3 (150-450); RED CELL DISTRIBUTION WIDTH 14.6 % (11.6-17.2); WHITE BLOOD COUNT 6.2 TH/MM3 (4.0-11.0)
[2017-02-09 16:22] LABS: HEMO FLAGS AUTO DIFF
[2017-02-09 16:30] LABS: ALT (GPT) 35 U/L (12-78); ANION GAP 9 MEQ/L (5-15); AST (GOT) 41 U/L (15-37); BICARBONATE 23.6 MEQ/L (21.0-32.0); BLOOD UREA NITROGEN 6 MG/DL (7-18); CHLORIDE 105 MEQ/L (98-107); GLOMERULAR FILTRATION RATE 86 ML/MIN (>89); POTASSIUM 3.5 MEQ/L (3.5-5.1); SODIUM (NA) 138 MEQ/L (136-145)
[2017-02-09 16:33] LABS: ALKALINE PHOSPHATASE 119 U/L (45-117); TOTAL BILIRUBIN ADULT 1.6 MG/DL (0.2-1.0)
[2017-02-09 16:34] LABS: ALCOHOL 225 MG/DL (0-5)
[2017-02-09 16:48] LABS: PLATELET ESTIMATE SMEAR LOW (NORMAL); PLATELET MORPHOLOGY NORMAL (NORMAL); SCAN/DIFF AUTO DIFF CONFIRMED
[2017-02-09 17:36] VITALS: BP 126/70; PULSE 94; RESP 18; TEMP 98.1; O2SAT 94
[2017-02-09] MEDS ORDERED: FLUMAZENIL 0.5 MG/5 ML VIAL IV PUSH PRN (19:15)
[2017-02-09] MEDS ORDERED: LORazepam 2 MG/ML VIAL IV PUSH PRN ×4 (19:15)
[2017-02-09] MEDS ORDERED: LORazepam 2 MG TAB PO PRN (19:15)
[2017-02-09] MEDS ORDERED: LORazepam 1 MG TAB PO PRN (19:15)
--- NOTE | 2017-02-09 19:17 | PD ---
HPI Chief Complaint: Psychiatric Symptoms Time Seen by Provider: 16:59 Travel History International Travel<30 days: No Contact w/Intl Traveler<30days: No Traveled to known affect area: No History of Present Illness HPI 56-year-old male presents to the emergency room her cooper act initiated by the [place]. States he initially went there for detox because of his alcohol abuse but they are concerned about statements he made and placed him under Cooper act. Patient states he has been Cooper acted 3 times. He denies any medical complaints other than chronic back pain. Patient could not quantify the amount of alcohol he drinks daily. 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 Coronary Artery Bypass Graft: No Insulin Pump: No Joint Replacement: No Neurologic Surgery: Yes (Spinal fusions C3-C7, neck and lower back x5) Oral Surgery: Yes (Tooth extractions) Pacemaker: No Tonsillectomy: Yes Other Surgery: Yes (LOW BACK SURGERY X 2) Social History Alcohol Use: No (FORMER- SOBER 31 DAYS) Tobacco Use: Yes (1/2 PPD) Substance Use: Yes (MARIJUANA) Allergies-Medications (Allergen,Severity, Reaction): Coded Allergies: No Known Allergies (Unverified , 10/30/16) Reported Meds & Prescriptions Reported Meds & Active Scripts Active Robaxin (Methocarbamol) 500 Mg Tab 500 Mg PO QID Diclofenac Sodium DR (Diclofenac Sodium) 75 Mg Tabdr 75 Mg PO BID Reported [reflux med] [liver pill] [water pill] [antidepressant] Adderall (Amphetamine-Dextroamphetamine) 5 Mg Tab 5 Mg PO BID Avoid late evening doses. Space doses at least 4 to 6 hours if more than once/day dosing. Review of Systems Except as stated in HPI: all other systems reviewed are Neg Physical Exam Narrative GENERAL: Well-nourished, well-developed male in no acute distress. Afebrile. Ambulatory. SKIN: Focused skin assessment warm/dry. HEAD: Normocephalic. EYES: No scleral icterus. No injection or drainage. NECK: Supple, trachea midline. No JVD or lymphadenopathy. CARDIOVASCULAR: Regular rate and rhythm without murmurs, gallops, or rubs. RESPIRATORY: Breath sounds equal bilaterally. No accessory muscle use. PSYCHIATRIC: No delusional thought processes. No hallucinations. Normal affect. Data Data Last Documented VS Vital Signs Date Time Temp Pulse Resp B/P (MAP) Pulse Ox O2 Delivery O2 Flow Rate FiO2 02/09/17 17:36 98.1 94 18 126/70 (88) 94 Room Air Orders Orders Complete Blood Count With Diff (02/09/17 15:01) Comprehensive Metabolic Panel (02/09/17 15:01) Psych Screen (02/09/17 15:01) Drug Screen, Random Urine (02/09/17 15:01) Alcohol (Ethanol) (02/09/17 15:01) Alcohol Withdrawal Asmt-Ciwa ONCE (02/09/17 19:01) Flumazenil Inj (Romazicon Inj) (02/09/17 19:15) Lorazepam (Ativan) (02/09/17 19:15) Lorazepam Inj (Ativan Inj) (02/09/17 19:15) Lorazepam (Ativan) (02/09/17 19:15) Lorazepam Inj (Ativan Inj) (02/09/17 19:15) Lorazepam Inj (Ativan Inj) (02/09/17 19:15) Lorazepam Inj (Ativan Inj) (02/09/17 19:15) Labs Laboratory Tests Test 02/09/17 15:18 02/09/17 15:30 Urine Opiates Screen NEG Urine Barbiturates Screen NEG Urine Amphetamines Screen NEG Urine Benzodiazepines Screen NEG Urine Cocaine Screen NEG Urine Cannabinoids Screen POS White Blood Count 6.2 TH/MM3 Red Blood Count 5.10 MIL/MM3 Hemoglobin 15.9 GM/DL Hematocrit 46.2 % Mean Corpuscular Volume 90.5 FL Mean Corpuscular Hemoglobin 31.1 PG Mean Corpuscular Hemoglobin Concent 34.3 % Red Cell Distribution Width 14.6 % Platelet Count 83 TH/MM3 Mean Platelet Volume 6.9 FL Neutrophils (%) (Auto) 53.8 % Lymphocytes (%) (Auto) 30.3 % Monocytes (%) (Auto) 9.8 % Eosinophils (%) (Auto) 4.8 % Basophils (%) (Auto) 1.3 % Neutrophils # (Auto) 3.3 TH/MM3 Lymphocytes # (Auto) 1.9 TH/MM3 Monocytes # (Auto) 0.6 TH/MM3 Eosinophils # (Auto) 0.3 TH/MM3 Basophils # (Auto) 0.1 TH/MM3 CBC Comment AUTO DIFF Differential Comment AUTO DIFF CONFIRMED Platelet Estimate LOW Platelet Morphology Comment NORMAL Blood Urea Nitrogen 6 MG/DL Creatinine 0.91 MG/DL Random Glucose 108 MG/DL Total Protein 8.3 GM/DL Albumin 4.1 GM/DL Calcium Level 8.5 MG/DL Alkaline Phosphatase 119 U/L Aspartate Amino Transf (AST/SGOT) 41 U/L Alanine Aminotransferase (ALT/SGPT) 35 U/L Total Bilirubin 1.6 MG/DL Sodium Level 138 MEQ/L Potassium Level 3.5 MEQ/L Chloride Level 105 MEQ/L Carbon Dioxide Level 23.6 MEQ/L Anion Gap 9 MEQ/L Estimat Glomerular Filtration Rate 86 ML/MIN Ethyl Alcohol Level 225 MG/DL MDM Medical Decision Making Medical Screen Exam Complete: Yes Emergency Medical Condition: Yes Medical Record Reviewed: Yes Differential Diagnosis Alcohol abuse, mood disorder, schizophrenia, personality disorder Narrative Course 56-year-old male presents to the emergency room for alcohol abuse. [facility] under a Cooper act out of concern for homicidal statements. Patient denies any medical complaints. States he typically drinks a significant amount of alcohol daily and has not had drinks for a while so he is starting to shake. CIWA protocol initiated. Vital signs stable. CBC and CMP are unremarkable. Drug screen is positive for cannabinoids. Alcohol 225. Patient is medically clear for psychiatric evaluation. Condition: Stable Paris Alan Feb 09, 2017 19:17
[2017-02-09] MEDS ORDERED: NICOTINE 21 MG/24 HR PATCH T-DERMAL ONE (20:45)
[2017-02-10 02:31] VITALS: BP 97/52; PULSE 74; RESP 17; O2SAT 95
[2017-02-10 06:23] VITALS: BP 141/71; PULSE 82; RESP 17; O2SAT 95
[2017-02-10 11:11] VITALS: BP 133/74; PULSE 84; RESP 16; TEMP 99.7; O2SAT 96
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
--- NOTE | 2017-02-10 14:12 | PD ---
Physical Exam Date Seen by Provider: Feb 10, 2017 Narrative 56-year-old male patient presented to our facility under Cooper act. Patient was subsequently cleared medically and psychiatrically a Cooper act was lifted. I was asked to disposition the patient. Data Data Last Documented VS Vital Signs Date Time Temp Pulse Resp B/P (MAP) Pulse Ox O2 Delivery O2 Flow Rate FiO2 02/10/17 11:11 99.7 84 16 133/74 (93) 96 Room Air Orders Orders Complete Blood Count With Diff (02/09/17 15:01) Comprehensive Metabolic Panel (02/09/17 15:01) Psych Screen (02/09/17 15:01) Drug Screen, Random Urine (02/09/17 15:01) Alcohol (Ethanol) (02/09/17 15:01) Alcohol Withdrawal Asmt-Ciwa ONCE (02/09/17 19:01) Flumazenil Inj (Romazicon Inj) (02/09/17 19:15) Lorazepam (Ativan) (02/09/17 19:15) Lorazepam Inj (Ativan Inj) (02/09/17 19:15) Lorazepam (Ativan) (02/09/17 19:15) Lorazepam Inj (Ativan Inj) (02/09/17 19:15) Lorazepam Inj (Ativan Inj) (02/09/17 19:15) Lorazepam Inj (Ativan Inj) (02/09/17 19:15) Nicotine 21 Mg Patch.24 Hr (Habitrol 21 (02/09/17 20:45) Diet Regular Basic (02/10/17 Breakfast) Diet Regular Basic (02/10/17 Lunch) Ed Discharge Order (02/10/17 14:12) Labs Laboratory Tests Test 02/09/17 15:18 02/09/17 15:30 Urine Opiates Screen NEG Urine Barbiturates Screen NEG Urine Amphetamines Screen NEG Urine Benzodiazepines Screen NEG Urine Cocaine Screen NEG Urine Cannabinoids Screen POS White Blood Count 6.2 TH/MM3 Red Blood Count 5.10 MIL/MM3 Hemoglobin 15.9 GM/DL Hematocrit 46.2 % Mean Corpuscular Volume 90.5 FL Mean Corpuscular Hemoglobin 31.1 PG Mean Corpuscular Hemoglobin Concent 34.3 % Red Cell Distribution Width 14.6 % Platelet Count 83 TH/MM3 Mean Platelet Volume 6.9 FL Neutrophils (%) (Auto) 53.8 % Lymphocytes (%) (Auto) 30.3 % Monocytes (%) (Auto) 9.8 % Eosinophils (%) (Auto) 4.8 % Basophils (%) (Auto) 1.3 % Neutrophils # (Auto) 3.3 TH/MM3 Lymphocytes # (Auto) 1.9 TH/MM3 Monocytes # (Auto) 0.6 TH/MM3 Eosinophils # (Auto) 0.3 TH/MM3 Basophils # (Auto) 0.1 TH/MM3 CBC Comment AUTO DIFF Differential Comment AUTO DIFF CONFIRMED Platelet Estimate LOW Platelet Morphology Comment NORMAL Blood Urea Nitrogen 6 MG/DL Creatinine 0.91 MG/DL Random Glucose 108 MG/DL Total Protein 8.3 GM/DL Albumin 4.1 GM/DL Calcium Level 8.5 MG/DL Alkaline Phosphatase 119 U/L Aspartate Amino Transf (AST/SGOT) 41 U/L Alanine Aminotransferase (ALT/SGPT) 35 U/L Total Bilirubin 1.6 MG/DL Sodium Level 138 MEQ/L Potassium Level 3.5 MEQ/L Chloride Level 105 MEQ/L Carbon Dioxide Level 23.6 MEQ/L Anion Gap 9 MEQ/L Estimat Glomerular Filtration Rate 86 ML/MIN Ethyl Alcohol Level 225 MG/DL MDM Supervised Visit with HA: Yes Differential Diagnosis Depression versus suicidal ideation versus anxiety versus adjustment disorder versus mood disorder versus bipolar disorder versus schizophrenia versus paranoid disorder versus psychosis versus substance abuse versus alcohol abuse versus alcohol induced psychosis versus homicidality addition versus cutting versus personality disorder Narrative Course 56-year-old male patient presented to our facility under Cooper act. Patient was subsequently cleared medically and psychiatrically a Cooper act was lifted. I was asked to disposition the patient. She denies any homicidal suicidal ideation at this time. Patient will be discharged home. Diagnosis Primary Impression: Alcohol dependence with acute alcoholic intoxication Qualified Codes: F10.220 - Alcohol dependence with intoxication, uncomplicated Additional Impression: PTSD (post-traumatic stress disorder) Patient Instructions: Abuse of Alcohol (DC), General Instructions, Post Traumatic Stress Disorder (DC) Disposition: 01 DISCHARGE HOME Condition: Stable [address] Carla WALKER Feb 10, 2017 14:12
== END 2017-02-10 14:43 | disposition home or self-care (01) ==
LOC: NEPJ 14:53
DX: F10.220 Alcohol dependence with intoxication, uncomplicated (principal); F43.10 Post-traumatic stress disorder, unspecified; F17.200 Nicotine dependence, unspecified, uncomplicated; Z79.899 Other long term (current) drug therapy; Z87.39 Personal history of other diseases of the musculoskeletal system and connective tissue; Z86.59 Personal history of other mental and behavioral disorders; Z86.79 Personal history of other diseases of the circulatory system; Z87.19 Personal history of other diseases of the digestive system; Z86.19 Personal history of other infectious and parasitic diseases; Z86.69 Personal history of other diseases of the nervous system and sense organs
CPT/HCPCS: 80053; 80307; 85025; 99284

== ENCOUNTER 2017-02-12 08:50 | Inpatient (IN) | payer OTHER ==
[~2017-02-12] VITALS: Ht 170.2 cm; Wt 94.4 kg
[2017-02-12 09:08] VITALS: BP 134/74; PULSE 84; RESP 18; TEMP 98.5; O2SAT 94
--- NOTE | 2017-02-12 09:25 | PD ---
HPI Chief Complaint: Psychiatric Symptoms Time Seen by Provider: 09:09 Travel History International Travel<30 days: No Contact w/Intl Traveler<30days: No Traveled to known affect area: No History of Present Illness HPI 56-year-old male presents the emergency department the Cooper act brought in by [place] [employer] with suicidal ideation. Patient has been intoxicated for an unknown period of time. He is threatening to kill himself without specific plan. Patient has history of PTSD and mother recently . [facility]. Patient was recently seen here for similar presentation released 3 days prior to this visit. Patient has no specific medical complaints. He has no known drug allergies. 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 Coronary Artery Bypass Graft: No Insulin Pump: No Joint Replacement: No Neurologic Surgery: Yes (Spinal fusions C3-C7, neck and lower back x5) Oral Surgery: Yes (Tooth extractions) Pacemaker: No Tonsillectomy: Yes Other Surgery: Yes (LOW BACK SURGERY X 2) Social History Alcohol Use: No (FORMER- SOBER 31 DAYS) Tobacco Use: Yes (1/2 PPD) Substance Use: Yes (daily alcohol, marijuana) Allergies-Medications (Allergen,Severity, Reaction): Coded Allergies: No Known Allergies (Unverified Allergy, Unknown, 02/12/17) Per patient's spouse - Samantha Zayas [phone]. Reported Meds & Prescriptions Reported Meds & Active Scripts Active Reported Nadolol 20 Mg Tab 20 Mg PO DAILY Combivent Respimat Inh (Ipratropium-Albuterol Inh) 20-100 Halfway/Act Aero 1 Puff INH QID All Day Allergy (Cetirizine HCl) 10 Mg Tab 5 Mg PO DAILY Hydroxyzine HCl 25 Mg Tab 25 Mg PO BID PRN Spironolactone 25 Mg Tab 25 Mg PO BIDPC Baclofen 10 Mg Tab 10 Mg PO TID Lamotrigine 100 Mg Tab 100 Mg PO HS Omeprazole 20 Mg Tab 25 Mg PO BIDAC Mirtazapine 45 Mg Tab 45 Mg PO HS Furosemide 40 Mg Tab 40 Mg PO DAILY Lactulose Liq (Lactulose) 10 Gm/15 Ml Soln 15 Ml PO TID Review of Systems ROS Limitations: Intoxication Except as stated in HPI: all other systems reviewed are Neg General / Constitutional: No: Fever Eyes: No: Visual changes HENT: No: Headaches Cardiovascular: No: Chest Pain or Discomfort Respiratory: No: Shortness of Breath Gastrointestinal: No: Abdominal Pain Genitourinary: No: Dysuria Musculoskeletal: No: Pain Skin: No Rash Neurologic: No: Weakness Psychiatric: No: Depression Endocrine: No: Polydipsia Hematologic/Lymphatic: No: Easy Bruising Physical Exam Exam Limitations: Intoxication Narrative GENERAL: Patient appears sad but in no acute distress. SKIN: Warm and dry. Normal color. Normal turgor. No signs of trauma. HEAD: Atraumatic. Normocephalic. EYES: Pupils equal and round. No scleral icterus. No injection or drainage. ENT: No nasal bleeding or discharge. Mucous membranes pink and moist. Pharynx is clear. Airway is patent. NECK: Trachea midline. Neck is supple. CARDIOVASCULAR: Regular rate and rhythm. RESPIRATORY: No accessory muscle use. Clear to auscultation. Breath sounds equal bilaterally. MUSCULOSKELETAL: Extremities without clubbing, cyanosis, or edema. No obvious deformities. NEUROLOGICAL: Awake and alert. No obvious cranial nerve deficits. Motor grossly within normal limits. Five out of 5 muscle strength in the arms and legs. Normal speech. PSYCHIATRIC: Appropriate mood and affect; insight and judgment normal. Data Data Last Documented VS Vital Signs Date Time Temp Pulse Resp B/P (MAP) Pulse Ox O2 Delivery O2 Flow Rate FiO2 02/12/17 09:34 98.5 84 18 134/74 (94) 98 02/12/17 09:08 Room Air Orders Orders Complete Blood Count With Diff (02/12/17 09:10) Comprehensive Metabolic Panel (02/12/17 09:10) Psych Screen (02/12/17 09:10) Drug Screen, Random Urine (02/12/17 09:10) Alcohol Withdrawal Asmt-Ciwa [id number] (02/12/17 09:21) Flumazenil Inj (Romazicon Inj) (02/12/17 09:30) Lorazepam (Ativan) (02/12/17 09:30) Lorazepam Inj (Ativan Inj) (02/12/17 09:30) Lorazepam (Ativan) (02/12/17 09:30) Lorazepam Inj (Ativan Inj) (02/12/17 09:30) Lorazepam Inj (Ativan Inj) (02/12/17 09:30) Lorazepam Inj (Ativan Inj) (02/12/17 09:30) Diet Regular Basic (02/12/17 Breakfast) Alcohol (Ethanol) (02/12/17 10:46) Admit Order (Ed Use Only) (02/12/17 13:27) Labs Laboratory Tests Test 02/12/17 09:00 02/12/17 09:50 Urine Opiates Screen NEG Urine Barbiturates Screen NEG Urine Amphetamines Screen NEG Urine Benzodiazepines Screen NEG Urine Cocaine Screen NEG Urine Cannabinoids Screen POS White Blood Count 4.0 TH/MM3 Red Blood Count 5.12 MIL/MM3 Hemoglobin 15.8 GM/DL Hematocrit 46.7 % Mean Corpuscular Volume 91.3 FL Mean Corpuscular Hemoglobin 30.9 PG Mean Corpuscular Hemoglobin Concent 33.8 % Red Cell Distribution Width 14.7 % Platelet Count 81 TH/MM3 Mean Platelet Volume 7.3 FL Neutrophils (%) (Auto) 50.3 % Lymphocytes (%) (Auto) 31.0 % Monocytes (%) (Auto) 8.7 % Eosinophils (%) (Auto) 7.7 % Basophils (%) (Auto) 2.3 % Neutrophils # (Auto) 2.0 TH/MM3 Lymphocytes # (Auto) 1.2 TH/MM3 Monocytes # (Auto) 0.3 TH/MM3 Eosinophils # (Auto) 0.3 TH/MM3 Basophils # (Auto) 0.1 TH/MM3 CBC Comment AUTO DIFF Differential Comment AUTO DIFF CONFIRMED Platelet Estimate LOW Platelet Morphology Comment NORMAL Ovalocytes 1+ Blood Urea Nitrogen 5 MG/DL Creatinine 0.74 MG/DL Random Glucose 113 MG/DL Total Protein 7.7 GM/DL Albumin 3.6 GM/DL Calcium Level 8.7 MG/DL Alkaline Phosphatase 117 U/L Aspartate Amino Transf (AST/SGOT) 46 U/L Alanine Aminotransferase (ALT/SGPT) 36 U/L Total Bilirubin 1.1 MG/DL Sodium Level 139 MEQ/L Potassium Level 3.8 MEQ/L Chloride Level 106 MEQ/L Carbon Dioxide Level 23.7 MEQ/L Anion Gap 9 MEQ/L Estimat Glomerular Filtration Rate 109 ML/MIN Ethyl Alcohol Level 87 MG/DL [facility] Medical Decision Making Medical Screen Exam Complete: Yes Emergency Medical Condition: Yes Differential Diagnosis Cooper act. Alcoholic intoxication. Suicidal ideation. Narrative Course Psychiatric labs ordered per protocol. [facility] protocols in place. Patient is medically cleared for psychiatric evaluation. Diagnosis Primary Impression: Depression with suicidal ideation Additional Impression: Medical clearance for psychiatric admission Condition: Stable Sam Gillespie Feb 12, 2017 09:25
[2017-02-12] MEDS ORDERED: LORazepam 2 MG TAB PO PRN ×2 (09:30→13:30)
[2017-02-12] MEDS ORDERED: FLUMAZENIL 0.5 MG/5 ML VIAL IV PUSH PRN ×2 (09:30→13:30)
[2017-02-12] MEDS ORDERED: LORazepam 2 MG/ML VIAL IV PUSH PRN ×8 (09:30→13:30)
[2017-02-12 09:34] VITALS: BP 134/74; PULSE 84; RESP 18; TEMP 98.5; O2SAT 98
[2017-02-12 10:50] LABS: BASOPHIL # 0.1 TH/MM3 (0-0.2); BASOPHIL % 2.3 % (0.0-2.0); EOSINOPHIL # 0.3 TH/MM3 (0-0.4); EOSINOPHIL % 7.7 % (0.0-4.0); HEMATOCRIT 46.7 % (39.0-51.0); LYMPHOCYTE # 1.2 TH/MM3 (1.0-4.8); MEAN CELL VOLUME 91.3 FL (80.0-100.0); MEAN CORPUSCULAR HEMOGLOBIN 30.9 PG (27.0-34.0); MEAN CORPUSCULAR HGB CONC 33.8 % (32.0-36.0); MONO % 8.7 % (0.0-8.0); NEUT % 50.3 % (16.0-70.0); PLATELET COUNT 81 TH/MM3 (150-450); RED BLOOD COUNT 5.12 MIL/MM3 (4.50-5.90); RED CELL DISTRIBUTION WIDTH 14.7 % (11.6-17.2)
[2017-02-12 10:52] LABS: HEMO FLAGS AUTO DIFF
[2017-02-12] MEDS ORDERED: LACT10SO PO (11:03)
[2017-02-12] MEDS ORDERED: FURO40TA PO (11:04)
[2017-02-12] MEDS ORDERED: MIRT45TA PO (11:07)
[2017-02-12] MEDS ORDERED: OMEP20TA93 PO (11:09)
[2017-02-12 11:10] LABS: ANION GAP 9 MEQ/L (5-15); AST (GOT) 46 U/L (15-37); BICARBONATE 23.7 MEQ/L (21.0-32.0); BLOOD UREA NITROGEN 5 MG/DL (7-18); CHLORIDE 106 MEQ/L (98-107); GLOMERULAR FILTRATION RATE 109 ML/MIN (>89); POTASSIUM 3.8 MEQ/L (3.5-5.1); SODIUM (NA) 139 MEQ/L (136-145)
[2017-02-12] MEDS ORDERED: LAMO100T PO (11:10)
[2017-02-12 11:11] LABS: ALT (GPT) 36 U/L (12-78)
[2017-02-12] MEDS ORDERED: BACL10TA PO (11:12)
[2017-02-12] MEDS ORDERED: SPIR25TA PO (11:13)
[2017-02-12 11:14] LABS: ALKALINE PHOSPHATASE 117 U/L (45-117); TOTAL BILIRUBIN ADULT 1.1 MG/DL (0.2-1.0)
[2017-02-12] MEDS ORDERED: HYDR-3133 PO (11:14)
[2017-02-12] MEDS ORDERED: CETI10TA71 PO (11:17)
[2017-02-12] MEDS ORDERED: IPRAAER INH (11:18)
[2017-02-12] MEDS ORDERED: NADO20TA PO (11:20)
[2017-02-12 11:38] LABS: OVALOCYTES 1+ (NORMAL); PLATELET ESTIMATE SMEAR LOW (NORMAL); PLATELET MORPHOLOGY NORMAL (NORMAL); SCAN/DIFF AUTO DIFF CONFIRMED
[2017-02-12] MEDS ORDERED: ALUMINUM/MAGNESIUM/SIMETH 30 ML CUP PO PRN (13:30)
[2017-02-12] MEDS ORDERED: MAGNESIUM HYDROXIDE SUSP 30 ML CUP PO PRN (13:30)
[2017-02-12] MEDS ORDERED: SODIUM CHLORIDE 0.9% FLUSH 10 ML FLUSH IV FLUSH PRN (13:30)
[2017-02-12] MEDS ORDERED: diphenhydrAMINE HCL 50 MG CAP PO PRN (13:30)
[2017-02-12] MEDS ORDERED: LORazepam 1 MG TAB PO PRN (13:30)
[2017-02-12] MEDS ORDERED: ACETAMINOPHEN 325 MG TAB PO PRN (13:30)
[2017-02-12] MEDS ORDERED: diphenhydrAMINE HCL 50 MG/ML VIAL IM PRN (13:30)
--- NOTE | 2017-02-12 13:42 | HHI.HP ---
Provisional Diagnosis Admission Date [place] I. Adjustment disorder with depressed mood Certification of Person's Competence To Provide Express and Informed Consent I have personally examined John Zayas , a person being served at [facility] on, Feb 12, 2017 13:33. Express and informed consent means consent voluntarily given in writing, by a competent person, after sufficient explanation and disclosure of the subject matter involved to enable the person to make a knowing and willful decision without any element of force, fraud, deceit, duress, or other form of constraint or coercion. This person is 18 years of age or older, is not now known to be incompetent to consent to treatment with a guardian advocate, and does not have a health care surrogate or proxy currently making medical treatment decisions. I have found this person to be one of the following: [x] Competent to provide express and informed consent, as defined above, for voluntary admission to this facility and is competent to provide express and informed consent for treatment. He/she has the consistent capacity to make well reasoned, willful, and knowing decisions concerning his or her medical or mental health treatment. The person fully and consistently understands the purpose of the admission for examination/placement and is fully capable of personally exercising all rights assured [place] Incompetent to provide express and informed consent to voluntary admission, and this is incompetent to provide express and informed consent to treatment. The person must be transferred to involuntary status and a petition for a guardian advocate filed with the Circuit Court. [] Refusing to provide express and informed consent to voluntary admission but is competent to provide express and informed consent for treatment. The person must be discharged or transferred to involuntary status. Form shall be completed within 24 hours of a person's arrival at the receiving facility and filed in the clinical record of each person: 1. Admitted on a voluntary basis 2. Permitted to provide express and informed consent to his/her own treatment 3. Allowed to transfer from involuntary to voluntary status 4. Prior to permitting a person to consent to his or her own treatment after having been previously found incompetent to consent to treatment. History of Present Illness Capacity: Has Capacity HPI 56-year-old male, , 100% disabled for physical and psychiatric reasons, presents under a Cooper act for suicidal ideation. Patient was here 3 days ago with similar complaints of suicidal ideation and was released. Apparently he carries a diagnosis of posttraumatic stress disorder. Additionally, his mother recently. Patient has been self-medicating with alcohol. He describes multiple symptoms of depression, including depressed mood, anhedonia, social withdrawal, suicidal ideation, anxiety, insomnia, decreased appetite, feelings of hopelessness and helplessness, decreased self-esteem, etc. He is but he and his are at this time, the patient is unable to contract for safety and because this is his second emergency department visit in 3 days, he is being admitted for further evaluation and treatment. Review of Systems Except as stated in HPI: all other systems reviewed are Neg Past Psych History Psychological trauma history Has history of PTSD from serving in the . Violence risk - others (6 mos) Moderate Violence risk - self (6 mos) High Substance Abuse History Drugs/Alcohol past 12 months Patient has been consuming an unknown amount of alcohol recently. He is being placed on the CIWA protocol. Past Family Social History Coded Allergies: No Known Allergies (Unverified Allergy, Unknown, 02/12/17) Per patient's spouse - Samantha Zayas [phone]. Reported Medications Nadolol (Nadolol) 20 Mg Tab, 20 MG PO DAILY, #30 TAB 0 Refills 02/12/17 Ipratropium-Albuterol Inh (Combivent Respimat Inh) 20-100 Long Term/Act Aero, 1 PUFF INH QID for Asthma Management, #1 INHALER 0 Refills 02/12/17 Cetirizine (All Day Allergy) 10 Mg Tab, 5 MG PO DAILY for Allergies, TAB 0 Refills 02/12/17 Hydroxyzine HCl (Hydroxyzine HCl) 25 Mg Tab, 25 MG PO BID Y for ANXIETY, TAB 0 Refills 02/12/17 Spironolactone (Spironolactone) 25 Mg Tab, 25 MG PO BIDPC, #60 TAB 0 Refills 02/12/17 Baclofen (Baclofen) 10 Mg Tab, 10 MG PO TID, TAB 0 Refills 02/12/17 Lamotrigine (Lamotrigine) 100 Mg Tab, 100 MG PO HS for Control Seizures, #60 TAB 0 Refills 02/12/17 Omeprazole (Omeprazole) 20 Mg Tab, 25 MG PO BIDAC, #30 TAB 0 Refills 02/12/17 Mirtazapine (Mirtazapine) 45 Mg Tab, 45 MG PO HS for Depression Control, #30 TAB 0 Refills 02/12/17 Furosemide (Furosemide) 40 Mg Tab, 40 MG PO DAILY, #30 TAB 0 Refills 02/12/17 Lactulose Liq (Lactulose Liq) 10 Gm/15 Ml Soln, 15 ML PO TID, ML 0 Refills 02/12/17 Discontinued Reported Medications [reflux med] No Conflict Check 10/28/16 [liver pill] No Conflict Check 10/28/16 [water pill] No Conflict Check 10/28/16 [antidepressant] No Conflict Check 10/28/16 Amphetamine-Dextroamphetamine (Adderall) 5 Mg Tab, 5 MG PO BID for Hyperactivity Control, #60 TAB 0 Refills Avoid late evening doses. Space doses at least 4 to 6 hours if more than once/day dosing. 04/07/16 Discontinued Scripts Methocarbamol (Robaxin) 500 Mg Tab, 500 MG PO QID for Muscle Spasm, #40 TAB Prov:Delvin Melo MD 10/30/[address] (Diclofenac Sodium DR) 75 Mg Tabdr, 75 MG PO BID, #20 TAB Prov:Delvin Melo MD 10/30/16 Current Medications Medications (Trade) Dose Ordered Sig/Samy Route Start Time Stop Time Status Last Admin (Romazicon Inj) 0.2 mg Q1M PRN IV PUSH 02/12/17 09:30 (Ativan) 1 mg Q4H PRN PO 02/12/17 09:30 (Ativan Inj) 1 mg Q4H PRN IV PUSH 02/12/17 09:30 (Ativan) 2 mg Q2H PRN PO 02/12/17 09:30 (Ativan Inj) 2 mg Q2H PRN IV PUSH 02/12/17 09:30 (Ativan Inj) 2 mg Q1H PRN IV PUSH 02/12/17 09:30 (Ativan Inj) 2 mg Q15M PRN IV PUSH 02/12/17 09:30 Family Psych History Positive for mood disorders and anxiety. Social History Unemployed. 100% disabled. [place] of the [employer] . from his . History of alcoholism. Patient's Strengths (min. 2) Verbal and has access to healthcare. Physical Exam GENERAL: SKIN: Warm and dry. HEAD: Normocephalic. EYES: No scleral icterus. No injection or drainage. NECK: Supple, trachea midline. No JVD or lymphadenopathy. CARDIOVASCULAR: Regular rate and rhythm without murmurs, gallops, or rubs. RESPIRATORY: Breath sounds equal bilaterally. No accessory muscle use. GASTROINTESTINAL: Abdomen soft, non-tender, nondistended. MUSCULOSKELETAL: No cyanosis, or edema. BACK: Nontender without obvious deformity. No CVA tenderness. Vital Signs Vital Signs Date Time Temp Pulse Resp B/P (MAP) Pulse Ox O2 Delivery O2 Flow Rate FiO2 02/12/17 09:34 98.5 84 18 134/74 (94) 98 02/12/17 09:08 Room Air Lab Results Test 02/12/17 09:00 02/12/17 09:50 Urine Opiates Screen NEG Urine Barbiturates Screen NEG Urine Amphetamines Screen NEG Urine Benzodiazepines Screen NEG Urine Cocaine Screen NEG Urine Cannabinoids Screen POS White Blood Count 4.0 TH/MM3 Red Blood Count 5.12 MIL/MM3 Hemoglobin 15.8 GM/DL Hematocrit 46.7 % Mean Corpuscular Volume 91.3 FL Mean Corpuscular Hemoglobin 30.9 PG Mean Corpuscular Hemoglobin Concent 33.8 % Red Cell Distribution Width 14.7 % Platelet Count 81 TH/MM3 Mean Platelet Volume 7.3 FL Neutrophils (%) (Auto) 50.3 % Lymphocytes (%) (Auto) 31.0 % Monocytes (%) (Auto) 8.7 % Eosinophils (%) (Auto) 7.7 % Basophils (%) (Auto) 2.3 % Neutrophils # (Auto) 2.0 TH/MM3 Lymphocytes # (Auto) 1.2 TH/MM3 Monocytes # (Auto) 0.3 TH/MM3 Eosinophils # (Auto) 0.3 TH/MM3 Basophils # (Auto) 0.1 TH/MM3 CBC Comment AUTO DIFF Differential Comment AUTO DIFF CONFIRMED Platelet Estimate LOW Platelet Morphology Comment NORMAL Ovalocytes 1+ Blood Urea Nitrogen 5 MG/DL Creatinine 0.74 MG/DL Random Glucose 113 MG/DL Total Protein 7.7 GM/DL Albumin 3.6 GM/DL Calcium Level 8.7 MG/DL Alkaline Phosphatase 117 U/L Aspartate Amino Transf (AST/SGOT) 46 U/L Alanine Aminotransferase (ALT/SGPT) 36 U/L Total Bilirubin 1.1 MG/DL Sodium Level 139 MEQ/L Potassium Level 3.8 MEQ/L Chloride Level 106 MEQ/L Carbon Dioxide Level 23.7 MEQ/L Anion Gap 9 MEQ/L Estimat Glomerular Filtration Rate 109 ML/MIN Ethyl Alcohol Level 87 MG/DL Mental Status Examination Appearance: Appropriate Consciousness: Alert Orientation: x4 Motor Activity: Normal gait Speech: Unremarkable Language: Adequate Fund of Knowledge: Adequate Attention and Concentration: Adequate Memory: Unremarkable Mood: Sad Affect: Sad Thought Process & Associations: Intact Thought Content: Appropriate Hallucination Type: None Delusion Type: None Suicidal Ideation: Yes Suicidal Plan: No Suicidal Intention: No Homicidal Ideation: No Homicidal Plan: No Homicidal Intention: No Insight: Fair Judgment: Impulsive Assessment & Plan Problem List: (1) Adjustment disorder with depressed mood ICD Codes: F43.21 - Adjustment disorder with depressed mood Assessment & Plan Estimated LOS: days. 56-year-old male with multiple risk factors for suicide, including depressed mood, abuse of alcohol, history of posttraumatic stress disorder, separation from his , etc. Patient is being admitted as this is his second time to the emergency department with suicidal thinking. This physician has ordered a CIWA protocol to prevent the patient from going into alcohol withdrawal. Additionally, this physician ordered a CBC and comprehensive metabolic panel to determine if any infectious process or metabolic process is causing or contributing to his depression. This physician also ordered a hemoglobin A1c and lipid panel due to the patient's age and lack of nutrition. Thyroid stimulating hormone, vitamin D and vitamin B-12 levels will also ordered to determine if deficiencies in these areas are causing or contributing to his depression. A hospitalist consult was also obtained to assist with these matters. Patient also ordered to have an EKG to determine his cardiac conduction status prior to significant change of psychotropic medicines. This physician spoke to the patient's nurse, Maggie, regarding his recent behavior. Lastly, case management will be involved to assist with information gathering and disposition planning. Julián Cummings MD Feb 12, 2017 13:42
--- NOTE | 2017-02-12 15:08 | PD.CONS ---
HPI Service [facility] Hospitalists Consult Requested By Psychiatry. Reason for Consult Medical management. Primary Care Physician [facility] Diagnoses: (1) Hx of hepatitis C (2) History of cirrhosis History of Present Illness Mr. Zayas is a pleasant 56 year old male with a history of treated Hep C, Alcoholism, liver cirrhosis who was brought to the hospital under avalos act due to suicidal ideation. He has no specific medical concerns. Hospitalist service was consulted for medical management given his history of liver disease, Hep C. At the time of this interview, patient is doing well in his room. No chest pain, shortness of breath, fever, chills. He requests a nicotine patch. Denies any changes in bowel or bladder habits. Denies any ascites build up or lower extremity edema. He follows up with an outpatient GI physician. Review of Systems Except as stated in HPI: all other systems reviewed are Neg Past Family Social History Allergies: Coded Allergies: No Known Allergies (Unverified Allergy, Unknown, 02/12/17) Per patient's spouse - Samantha Zayas [phone]. Past Medical History Hepatitis C - has been treated Liver cirrhosis Alcohol addiction, Tobacco abuse Past Surgical History Lower back and neck surgery Reported Medications Current Medications Medications (Trade) Dose Ordered Sig/Samy Route Start Time Stop Time Status Last Admin (Romazicon Inj) 0.2 mg Q1M PRN IV PUSH 02/12/17 09:30 (Ativan) 1 mg Q4H PRN PO 02/12/17 09:30 02/12/17 17:36 (Ativan Inj) 1 mg Q4H PRN IV PUSH 02/12/17 09:30 (Ativan) 2 mg Q2H PRN PO 02/12/17 09:30 (Ativan Inj) 2 mg Q2H PRN IV PUSH 02/12/17 09:30 (Ativan Inj) 2 mg Q1H PRN IV PUSH 02/12/17 09:30 (Ativan Inj) 2 mg Q15M PRN IV PUSH 02/12/17 09:30 (Benadryl) 50 mg Q6H PRN PO 02/12/17 13:30 (Benadryl Inj) 50 mg Q6H PRN IM 02/12/17 13:30 (Tylenol) 650 mg Q4H PRN PO 02/12/17 13:30 (Milk Of Magnesia Liq) 30 ml DAILY PRN PO 02/12/17 13:30 (Mag-Al Plus Susp Liq) 30 ml Q6H PRN PO 02/12/17 13:30 (Atarax) 50 mg Q6H PRN PO 02/12/17 13:30 02/12/17 20:54 (NS Flush) 2 ml UNSCH PRN IV FLUSH 02/12/17 13:30 (NS Flush) 2 ml BID IV FLUSH 02/12/17 21:00 (Romazicon Inj) 0.2 mg Q1M PRN IV PUSH 02/12/17 13:30 (Ativan) 1 mg Q4H PRN PO 02/12/17 13:30 (Ativan Inj) 1 mg Q4H PRN IV PUSH 02/12/17 13:30 (Ativan) 2 mg Q2H PRN PO 02/12/17 13:30 (Ativan Inj) 2 mg Q2H PRN IV PUSH 02/12/17 13:30 (Ativan Inj) 2 mg Q1H PRN IV PUSH 02/12/17 13:30 (Ativan Inj) 2 mg Q15M PRN IV PUSH 02/12/17 13:30 (Lioresal) 10 mg TID PO 02/12/17 18:00 02/12/17 17:37 (ZyrTEC) 5 mg DAILY PO 02/13/17 09:00 (Lasix) 40 mg DAILY PO 02/13/17 09:00 (Lactulose Liq) 15 ml TID PO 02/12/17 18:00 02/12/17 17:37 (LaMICtal) 100 mg HS PO 02/12/17 21:00 02/12/17 20:40 (Remeron) 45 mg HS PO 02/12/17 21:00 02/12/17 20:40 (Corgard) 20 mg DAILY PO 02/13/17 09:00 (Aldactone) 25 mg BIDPC PO 02/12/17 18:00 02/12/17 17:36 Patient Own Medication PT OWN MED: COMBIV... QID INH 02/12/17 18:00 Future Hold (Protonix) 20 mg BIDAC PO 02/12/17 16:00 02/12/17 17:36 (Habitrol 14 Mg Patch.24 Hr) 1 patch DAILY T-DERMAL 02/12/17 15:15 Miscellaneous Information 1 DAILY T-DERMAL 02/13/17 09:00 Family History Father from heart attack. Social History Patient reports smoking about 1/2 ppd. He admits to drinking from the time he wakes up to the time he goes to sleep. He also smokes pot. Denies using any recent IV drugs. He quit IVDU about 18 years ago. Physical Exam Vital Signs Vital Signs Date Time Temp Pulse Resp B/P (MAP) Pulse Ox O2 Delivery O2 Flow Rate FiO2 02/12/17 14:41 02/12/17 09:34 98.5 84 18 134/74 (94) 98 02/12/17 09:08 98.5 84 18 134/74 (94) 94 Room Air Physical Exam GENERAL: This is a well-nourished, well-developed patient, in no apparent distress. SKIN: No rashes, ecchymoses or lesions. Warm and dry. HEAD: Atraumatic. Normocephalic. No temporal or scalp tenderness. EYES: Pupils equal round and reactive. No injection or drainage. ENT: Nose without bleeding, purulent drainage or septal hematoma. Airway patent. NECK: Trachea midline. No lymphadenopathy. Supple, nontender, no meningeal signs. CARDIOVASCULAR: Regular rate and rhythm without murmurs, gallops, or rubs. No JVD. RESPIRATORY: Clear to auscultation. Breath sounds equal bilaterally. No wheezes , rales, or rhonchi. GASTROINTESTINAL: Abdomen soft, non-tender, nondistended. No guarding. MUSCULOSKELETAL: Extremities without clubbing, cyanosis, or edema. NEUROLOGICAL: Awake and alert. Cranial nerves II through XII intact. No focal neurological deficits. Normal speech. Laboratory Laboratory Tests Test 02/12/17 09:00 02/12/17 09:50 Urine Opiates Screen NEG Urine Barbiturates Screen NEG Urine Amphetamines Screen NEG Urine Benzodiazepines Screen NEG Urine Cocaine Screen NEG Urine Cannabinoids Screen POS White Blood Count 4.0 Red Blood Count 5.12 Hemoglobin 15.8 Hematocrit 46.7 Mean Corpuscular Volume 91.3 Mean Corpuscular Hemoglobin 30.9 Mean Corpuscular Hemoglobin Concent 33.8 Red Cell Distribution Width 14.7 Platelet Count 81 Mean Platelet Volume 7.3 Neutrophils (%) (Auto) 50.3 Lymphocytes (%) (Auto) 31.0 Monocytes (%) (Auto) 8.7 Eosinophils (%) (Auto) 7.7 Basophils (%) (Auto) 2.3 Neutrophils # (Auto) 2.0 Lymphocytes # (Auto) 1.2 Monocytes # (Auto) 0.3 Eosinophils # (Auto) 0.3 Basophils # (Auto) 0.1 CBC Comment AUTO DIFF Differential Comment AUTO DIFF CONFIRMED Platelet Estimate LOW Platelet Morphology Comment NORMAL Ovalocytes 1+ Blood Urea Nitrogen 5 Creatinine 0.74 Random Glucose 113 Total Protein 7.7 Albumin 3.6 Calcium Level 8.7 Alkaline Phosphatase 117 Aspartate Amino Transf (AST/SGOT) 46 Alanine Aminotransferase (ALT/SGPT) 36 Total Bilirubin 1.1 Sodium Level 139 Potassium Level 3.8 Chloride Level 106 Carbon Dioxide Level 23.7 Anion Gap 9 Estimat Glomerular Filtration Rate 109 Ethyl Alcohol Level 87 Result Diagram: 02/12/1750 02/12/1750 Assessment and Plan Problem List: (1) Hx of hepatitis C ICD Code: Z86.19 - Personal history of other infectious and parasitic diseases Status: Acute (2) History of cirrhosis ICD Code: Z87.19 - Personal history of other diseases of the digestive system Status: Acute (3) Alcohol abuse ICD Code: F10.10 - Alcohol abuse, uncomplicated Status: Acute (4) Tobacco abuse ICD Code: Z72.0 - Tobacco abuse Status: Acute Assessment and Plan Mr. Zayas is a pleasant 56 year old [place] with a history of alcoholism, Hep C, liver cirrhosis who is admitted to psychiatry unit under avalos act due to suicidal ideations. - Suicidal ideations. - Adjustment disorder with depression - Management per Psychiatry team - Liver cirrhosis - possibly due to alcoholism as well as Hep C. - Hepatitis C - Per patient, he has been treated for Hep C. - Last Abdominal US in 2016 showed no liver mass but showed liver cirrhosis. - Recommend Liver US every 6 months to screen for any hepatic mass. - Will obtain Liver US this admission. - Patient currently does not have any ascites. He follows up with outpatient GI. - He should continue Lasix, Spironolactone, Nadolol for now. These medications, if needed, can be adjusted by GI outpatient. - Alcohol abuse - Tobacco abuse - Patient has been counselled about quitting alcohol, tobacco. - Will start patient on Nicotine patch. - Continue CIWA protocol. Full code. Ambulation. Thank you for the consult. We will continue to follow this patient with you. Samuel Santos DO Feb 12, 2017 15:08
[2017-02-12] MEDS: NICOTINE 14 MG/24 HR PATCH T-DERMAL SCH (15:15)
[2017-02-12 16:54] VITALS: BP 136/60; PULSE 94; RESP 12; TEMP 99.6; O2SAT 60
[2017-02-12] MEDS: SPIRONOLACTONE 25 MG TAB PO SCH (17:36)
[2017-02-12] MEDS: LORazepam 1 MG TAB PO PRN (17:36)
[2017-02-12] MEDS: PANTOPRAZOLE SOD 20 MG DELAYED RELEASE TAB PO SCH (17:36)
[2017-02-12] MEDS: LACTULOSE SYRUP 20 GM/30 ML CUP PO SCH (17:37)
[2017-02-12] MEDS: BACLOFEN 10 MG TAB PO SCH (17:37)
[2017-02-12 17:58] VITALS: BP 138/74; PULSE 77; RESP 18; TEMP 98.7; O2SAT 98
[2017-02-12 18:00] VITALS: BP 138/74; PULSE 77; RESP 18; TEMP 98.7; O2SAT 98
[2017-02-12] MEDS ORDERED: COMBIVENT RESPIMAT INH SCH (18:00)
[2017-02-12 18:16] VITALS: BP 133/76; PULSE 68; RESP 18; TEMP 98.3; O2SAT 99
[2017-02-12] MEDS: lamoTRIgine 100 MG TAB PO SCH (20:40)
[2017-02-12] MEDS: SODIUM CHLORIDE 0.9% FLUSH 10 ML FLUSH IV FLUSH SCH (20:40)
[2017-02-12] MEDS: MIRTAZAPINE 15 MG TAB PO SCH (20:40)
[2017-02-12] MEDS: hydrOXYzine HCL 50 MG TAB PO PRN (20:54)
[2017-02-13 05:41] VITALS: BP 119/59; PULSE 63; RESP 18; TEMP 99.4; O2SAT 93
[2017-02-13 07:57] LABS: AUTOMATED NEUTROPHIL # 1.6 TH/MM3 (1.8-7.7); BASOPHIL # 0.1 TH/MM3 (0-0.2); BASOPHIL % 2.4 % (0.0-2.0); EOSINOPHIL # 0.2 TH/MM3 (0-0.4); EOSINOPHIL % 7.3 % (0.0-4.0); HEMATOCRIT 43.8 % (39.0-51.0); LYMPH % 32.5 % (9.0-44.0); LYMPHOCYTE # 1.1 TH/MM3 (1.0-4.8); MEAN CELL VOLUME 91.9 FL (80.0-100.0); MEAN CORPUSCULAR HEMOGLOBIN 31.4 PG (27.0-34.0); MEAN CORPUSCULAR HGB CONC 34.2 % (32.0-36.0); MONO % 9.1 % (0.0-8.0); NEUT % 48.7 % (16.0-70.0); PLATELET COUNT 61 TH/MM3 (150-450); RED BLOOD COUNT 4.77 MIL/MM3 (4.50-5.90); RED CELL DISTRIBUTION WIDTH 14.8 % (11.6-17.2); WHITE BLOOD COUNT 3.3 TH/MM3 (4.0-11.0)
[2017-02-13 08:00] LABS: HEMO FLAGS AUTO DIFF
[2017-02-13 08:26] LABS: ANION GAP 10 MEQ/L (5-15); AST (GOT) 28 U/L (15-37); BICARBONATE 24.3 MEQ/L (21.0-32.0); BLOOD UREA NITROGEN 10 MG/DL (7-18); CHLORIDE 103 MEQ/L (98-107); GLOMERULAR FILTRATION RATE 107 ML/MIN (>89); POTASSIUM 3.7 MEQ/L (3.5-5.1); SODIUM (NA) 137 MEQ/L (136-145)
[2017-02-13 08:28] LABS: ALT (GPT) 24 U/L (12-78)
[2017-02-13 08:31] LABS: SCAN/DIFF AUTO DIFF CONFIRMED
[2017-02-13 08:54] LABS: ALKALINE PHOSPHATASE 142 U/L (45-117); HDL CHOLESTEROL 44.5 MG/DL (40.0-60.0); LDL CHOLESTEROL 56 MG/DL (0-99); TOTAL BILIRUBIN ADULT 1.3 MG/DL (0.2-1.0)
--- NOTE | 2017-02-13 08:55 | RADRPT ---
EXAM DATE/TIME: 02/13/2017 07:28 [place] COMPARISON: US ABDOMEN - LIVER, January 19, 2015, 10:51. INDICATIONS : Cirrhosis. MEDICAL HISTORY : Cirrhosis. Hepatitis C. PTSD. ETOH abuse. Esophageal varices. SURGICAL HISTORY : Tonsillectomy. Spinal fusions. ENCOUNTER: Initial ACUITY: > 1 year PAIN SCORE: 1/10 LOCATION: Bilateral upper quadrant MEASUREMENTS: LIVER: 15.8 cm length COMMON DUCT: 6 mm RIGHT KIDNEY: 12.6 x 6.7 x 5.1 cm SPLEEN: 15.4 cm length FINDINGS: LIVER: Liver demonstrates diffusely increased echogenicity with lobulated contour consistent with cirrhosis. No significant hepatic mass or intrahepatic ductal dilatation. COMMON DUCT: No intraluminal mass or stone visualized. GALLBLADDER: Gallbladder wall thickening with small amount gallbladder sludge. No pericholecystic fluid or sonogra phic Trammell sign. PANCREAS: The visualized portions are within normal limits. RIGHT KIDNEY: No hydronephrosis, stone or mass. SPLEEN: Enlarged measuring up to 15 cm. CONCLUSION: 1. Cirrhotic appearing liver without significant focal mass or ascites. 2. Splenomegaly consistent with some degree of portal hypertension. 3. Gallbladder sludge with thickened gallbladder wall which is commonly seen in patients with chronic liver disease. aSlas Freed MD on February 13, 2017 at 8:51 Board Certified Radiologist. This report was verified electronically.
[2017-02-13] MEDS ORDERED: NICOTINE 21 MG/24 HR PATCH T-DERMAL SCH (09:00)
[2017-02-13] MEDS: REMOVE OLD PATCH T-DERMAL SCH (09:00)
[2017-02-13] MEDS ORDERED: REMOVE OLD PATCH T-DERMAL SCH (09:00)
[2017-02-13] MEDS: SODIUM CHLORIDE 0.9% FLUSH 10 ML FLUSH IV FLUSH SCH ×2 (09:00→20:20)
[2017-02-13] MEDS: FUROSEMIDE 40 MG TAB PO SCH (09:26)
[2017-02-13] MEDS: CETIRIZINE HCL 10 MG TAB PO SCH (09:26)
[2017-02-13] MEDS: NADOLOL 20 MG TAB PO SCH (09:26)
[2017-02-13] MEDS: PANTOPRAZOLE SOD 20 MG DELAYED RELEASE TAB PO SCH ×2 (09:27→16:17)
[2017-02-13] MEDS: SPIRONOLACTONE 25 MG TAB PO SCH ×2 (09:27→18:35)
[2017-02-13] MEDS: BACLOFEN 10 MG TAB PO SCH ×3 (09:27→18:35)
[2017-02-13] MEDS: LACTULOSE SYRUP 20 GM/30 ML CUP PO SCH ×3 (09:28→18:35)
[2017-02-13] MEDS: NICOTINE 14 MG/24 HR PATCH T-DERMAL SCH (09:29)
[2017-02-13 13:26] LABS: HEMOGLOBIN A1a 0.9 %; HEMOGLOBIN A1b 1.4 %; HEMOGLOBIN Ao 85.9 %; HEMOGLOBIN P3 3.5 %
[2017-02-13] MEDS ORDERED: ACETAMINOPHEN 325 MG TAB PO PRN (13:30)
--- NOTE | 2017-02-13 13:33 | HHI.PYPN ---
Subjective Chief Complaint: depression Remarks Patient admitted by Dr. Julián Cummings his initial psychiatric evaluation reviewed and agreed with. I have filled out the initial psychiatric admission template. Patient seen by me with medical student mike. It appears she did visit our ED about 3 days ago and the blood alcohol level of 225 and toxicology positive for marijuana. He was discharged and return home. He make commitments for sobriety, [facility] It appears he did not know those and continued his drinking and use of marijuana. Patient's is subsequently left him. He is being evicted from his home. This is causing some more grief and depression. At the present time patient sitting quietly in his room. He acknowledges his chronic alcohol abuse. Though he also states he has had an 11 year episode of sobriety. He is uncertain about his ability to remain sober at this time. Remains depressed. His vague though he denies suicidality at this time. He is compliant with his medication. At this referral patient continues to be a fairly high risk of harming himself. Need further observation. We'll continue his observation assessment and reassess tomorrow patient states he does have a supportive son and grandson who live in [place] at this time I also feel patient has the capacity to sign voluntarily and to cooperate with his medications thus I'll lift the Cooper act allow him to sign voluntary Review of Systems Except as stated in HPI: all other systems reviewed are Neg Mental Status Examination Appearance: Appropriate Consciousness: Alert Orientation: x4 Motor Activity: Normal gait Speech: Unremarkable Language: Adequate Fund of Knowledge: Adequate Attention and Concentration: Adequate Memory: Unremarkable Mood: Sad Affect: Sad Thought Process & Associations: Intact Thought Content: Appropriate Hallucination Type: None Delusion Type: None Suicidal Ideation: Yes Suicidal Plan: No Suicidal Intention: No Homicidal Ideation: No Homicidal Plan: No Homicidal Intention: No Insight: Fair Judgment: Impulsive Results Labs Test 02/13/17 07:10 White Blood Count 3.3 TH/MM3 Red Blood Count 4.77 MIL/MM3 Hemoglobin 15.0 GM/DL Hematocrit 43.8 % Mean Corpuscular Volume 91.9 FL Mean Corpuscular Hemoglobin 31.4 PG Mean Corpuscular Hemoglobin Concent 34.2 % Red Cell Distribution Width 14.8 % Platelet Count 61 TH/MM3 Mean Platelet Volume 7.6 FL Neutrophils (%) (Auto) 48.7 % Lymphocytes (%) (Auto) 32.5 % Monocytes (%) (Auto) 9.1 % Eosinophils (%) (Auto) 7.3 % Basophils (%) (Auto) 2.4 % Neutrophils # (Auto) 1.6 TH/MM3 Lymphocytes # (Auto) 1.1 TH/MM3 Monocytes # (Auto) 0.3 TH/MM3 Eosinophils # (Auto) 0.2 TH/MM3 Basophils # (Auto) 0.1 TH/MM3 CBC Comment AUTO DIFF Differential Comment AUTO DIFF CONFIRMED Blood Urea Nitrogen 10 MG/DL Creatinine 0.75 MG/DL Random Glucose 110 MG/DL Total Protein 7.2 GM/DL Albumin 3.3 GM/DL Calcium Level 8.8 MG/DL Alkaline Phosphatase 142 U/L Aspartate Amino Transf (AST/SGOT) 28 U/L Alanine Aminotransferase (ALT/SGPT) 24 U/L Total Bilirubin 1.3 MG/DL Sodium Level 137 MEQ/L Potassium Level 3.7 MEQ/L Chloride Level 103 MEQ/L Carbon Dioxide Level 24.3 MEQ/L Anion Gap 10 MEQ/L Estimat Glomerular Filtration Rate 107 ML/MIN Triglycerides Level 48 MG/DL Cholesterol Level 110 MG/DL LDL Cholesterol 56 MG/DL HDL Cholesterol 44.5 MG/DL Cholesterol/HDL Ratio 2.47 RATIO Vitamin B12 Level 442 PG/ML 25-Hydroxy Vitamin D Total 25.9 ng/ML Thyroid Stimulating Hormone 3rd Gen 1.460 uIU/ML Vitals/IOs Vital Signs Date Time Temp Pulse Resp B/P (MAP) Pulse Ox O2 Delivery O2 Flow Rate FiO2 02/13/17 05:41 99.4 63 18 119/59 (79) 93 02/12/17 09:08 Room Air Intake and Output 02/13/17 02/13/17 02/14/17 08:00 16:00 00:00 Intake Total 720 ml Balance 720 ml Assessment & Plan Problem List: (1) Adjustment disorder with depressed mood ICD Codes: F43.21 - Adjustment disorder with depressed mood (2) Alcohol abuse with intoxication ICD Codes: F10.129 - Alcohol abuse with intoxication, unspecified Assessment & Plan Estimated LOS: days patient remains depressed though it appears to be softening somewhat. Is vague about suicidality. Is compliant with medication. For now continue treatment will reassess tomorrow Justification for Cont. Inpt. This time patient will decompensate in place to the lower level of care Discharge Planning Patient is being evicted from his home is uncertain of where he will be residing once he is discharged Request HC Surrog/Guard Advoc?: No Yassine Cheung MD Feb 13, 2017 13:33
--- NOTE | 2017-02-13 16:55 | HHI.PR ---
Subjective Remarks pleasant and cooperative admitted to drinking again "that's why I'm here" denies any nausea or vomiting states + recent stress in his life Objective Vitals Vital Signs Date Time Temp Pulse Resp B/P (MAP) Pulse Ox O2 Delivery O2 Flow Rate FiO2 02/13/17 05:41 99.4 63 18 119/59 (79) 93 02/12/17 18:16 98.3 68 18 133/76 (95) 99 02/12/17 18:00 98.7 77 18 138/74 (95) 98 02/12/17 17:58 98.7 77 18 138/74 (95) 98 I/O 02/12/17 02/12/17 02/12/17 02/13/17 02/13/17 02/13/17 07:00 15:00 23:00 07:00 15:00 23:00 Intake Total 240 ml 720 ml Balance 240 ml 720 ml Intake Oral 720 ml Tube Feeding 240 ml Result Diagram: 02/13/17 0710 02/13/17 0710 Imaging Last Impressions Liver Ultrasound 02/13/17 0000 Signed Impressions: Service Date/Time: Monday, February 13, 2017 07:28 - CONCLUSION: 1. Cirrhotic appearing liver without significant focal mass or ascites. 2. Splenomegaly consistent with some degree of portal hypertension. 3. Gallbladder sludge with thickened gallbladder wall which is commonly seen in patients with chronic liver disease. Salas Freed MD Objective Remarks awake and alert oriented x 3 anicteric'lungs clear regular rhythm abdomen- globularly soft, nontender, no scrotal edema extremities no edema neuro exam - unremarkable A/P Problem List: (1) Hx of hepatitis C ICD Code: Z86.19 - Personal history of other infectious and parasitic diseases Status: Acute (2) History of cirrhosis ICD Code: Z87.19 - Personal history of other diseases of the digestive system Status: Acute (3) Alcohol abuse ICD Code: F10.10 - Alcohol abuse, uncomplicated Status: Acute (4) Tobacco abuse ICD Code: Z72.0 - Tobacco abuse Status: Acute Assessment and Plan Mr. Zayas is a pleasant 56 year old [place] with a history of alcoholism, Hep C, liver cirrhosis who is admitted to psychiatry unit under avalos act due to suicidal ideations. - Suicidal ideations. - Adjustment disorder with depression - Management per Psychiatry team - Liver cirrhosis - possibly due to alcoholism as well as Hep C. - Hepatitis C - Per patient, he has been treated for Hep C. - Last Abdominal US in 2015 showed no liver mass but showed liver cirrhosis. - US dcofrims cirrhosis, no mass, no asxites - Will obtain Liver US this admission. - Patient currently does not have any ascites. [facility] - continue Lasix, Spironolactone, Nadolol for now. These medications, if needed, can be adjusted by GI outpatient. - Alcohol abuse - Tobacco abuse - Patient has been counselled about quitting alcohol, tobacco. - Will start patient on Nicotine patch. - Continue CIWA protocol. Full code. Ambulation. [facility] idscussion with patient - Reena Ramsay MD Feb 13, 2017 16:55
[2017-02-13 18:00] VITALS: BP 116/73; PULSE 67; RESP 16; TEMP 98; O2SAT 96
[2017-02-13] MEDS: hydrOXYzine HCL 50 MG TAB PO PRN (20:18)
[2017-02-13] MEDS: MIRTAZAPINE 15 MG TAB PO SCH (20:18)
[2017-02-13] MEDS: lamoTRIgine 100 MG TAB PO SCH (20:18)
[2017-02-13] MEDS: LORazepam 1 MG TAB PO PRN (23:46)
[2017-02-14 05:54] VITALS: BP 114/66; PULSE 68; RESP 18; TEMP 97.5; O2SAT 93
[2017-02-14] MEDS: PANTOPRAZOLE SOD 20 MG DELAYED RELEASE TAB PO SCH ×2 (06:02→15:53)
[2017-02-14] MEDS: CETIRIZINE HCL 10 MG TAB PO SCH (07:39)
[2017-02-14] MEDS: NADOLOL 20 MG TAB PO SCH (07:40)
[2017-02-14] MEDS: FUROSEMIDE 40 MG TAB PO SCH (07:41)
[2017-02-14] MEDS: SPIRONOLACTONE 25 MG TAB PO SCH ×2 (07:43→17:54)
[2017-02-14] MEDS: LACTULOSE SYRUP 20 GM/30 ML CUP PO SCH ×3 (07:44→17:54)
[2017-02-14] MEDS: LORazepam 1 MG TAB PO PRN (07:44)
[2017-02-14] MEDS: BACLOFEN 10 MG TAB PO SCH ×3 (07:44→17:54)
[2017-02-14] MEDS: NICOTINE 14 MG/24 HR PATCH T-DERMAL SCH (08:00)
[2017-02-14] MEDS: REMOVE OLD PATCH T-DERMAL SCH (08:38)
[2017-02-14] MEDS: SODIUM CHLORIDE 0.9% FLUSH 10 ML FLUSH IV FLUSH SCH ×2 (08:38→21:00)
--- NOTE | 2017-02-14 10:28 | EKG ---
Date Performed: 02/13/2017 Time Performed: 12:49:07 PTAGE: 56 years EKG: Sinus rhythm INCOMPLETE RIGHT BUNDLE BRANCH BLOCK BORDERLINE ECG PREVIOUS TRACING : 04/07/2016 21.13 DOCTOR: Delvin Eli Interpretating Date/Time 02/14/2017 10:26:44
--- NOTE | 2017-02-14 11:39 | HHI.PYPN ---
Subjective Chief Complaint: depression Remarks Patient seen in day room with nurse Janet, patient complains of some mild sleep disturbances with "nightmares".. She was somewhat demanding of benzodiazepines through the night. I reinforced with them, and consideration of his addictive issues, that he would get the Ativan only as determined by the [facility] protocol. He was fine with that. He denies suicidality homicidality voices or visions. We'll continue to observe patient next 24 hours. He states he does have the ability to return to his apartment until the any may have another placement arranged. Review of Systems Except as stated in HPI: all other systems reviewed are Neg Mental Status Examination Appearance: Appropriate Consciousness: Alert Orientation: x4 Motor Activity: Normal gait Speech: Unremarkable Language: Adequate Fund of Knowledge: Adequate Attention and Concentration: Adequate Memory: Unremarkable Mood: Sad Affect: Sad Thought Process & Associations: Intact Thought Content: Appropriate Hallucination Type: None Delusion Type: None Suicidal Ideation: Yes (denies today) Suicidal Plan: No Suicidal Intention: No Homicidal Ideation: No Homicidal Plan: No Homicidal Intention: No Insight: Fair Judgment: Impulsive Results Vitals/IOs Vital Signs Date Time Temp Pulse Resp B/P (MAP) Pulse Ox O2 Delivery O2 Flow Rate FiO2 02/14/17 05:54 97.5 68 18 114/66 (82) 93 02/12/17 09:08 Room Air Assessment & Plan Problem List: (1) Adjustment disorder with depressed mood ICD Codes: F43.21 - Adjustment disorder with depressed mood (2) Alcohol abuse with intoxication ICD Codes: F10.129 - Alcohol abuse with intoxication, unspecified Assessment & Plan Estimated LOS: days patient mood somewhat improved, today denies suicidality homicidality voices or visions. Is compliant medication. For now continue treatment. Consider discharge then 1-2 days Justification for Cont. Inpt. At this time patient decompensate with placed a lower level of care Discharge Planning Probable return to his own apartment Request HC Surrog/Guard Advoc?: No Yassine Cheung MD Feb 14, 2017 11:39
--- NOTE | 2017-02-14 11:55 | HHI.PR ---
Subjective Remarks patient doing great was hopeful to go home today feels great very motivated with alcohol cessation "I drink milk a lot" Objective Vitals Vital Signs Date Time Temp Pulse Resp B/P (MAP) Pulse Ox O2 Delivery O2 Flow Rate FiO2 02/14/17 05:54 97.5 68 18 114/66 (82) 93 02/13/17 18:00 98.0 67 16 116/73 (87) 96 I/O 02/13/17 02/13/17 02/13/17 02/14/17 02/14/17 02/14/17 07:00 15:00 23:00 07:00 15:00 23:00 Intake Total 720 ml Balance 720 ml Intake Oral 720 ml Result Diagram: 02/13/17 0710 02/13/17 0710 Imaging Last Impressions Liver Ultrasound 02/13/17 0000 Signed Impressions: Service Date/Time: Monday, February 13, 2017 07:28 - CONCLUSION: 1. Cirrhotic appearing liver without significant focal mass or ascites. 2. Splenomegaly consistent with some degree of portal hypertension. 3. Gallbladder sludge with thickened gallbladder wall which is commonly seen in patients with chronic liver disease. Salas Freed MD Objective Remarks awake and alert oriented x 3 anicteric lungs clear regular rhythm abdomen- globularly soft, nontender, extremities no edema neuro exam - unremarkable A/P Problem List: (1) Hx of hepatitis C ICD Code: Z86.19 - Personal history of other infectious and parasitic diseases Status: Acute (2) History of cirrhosis ICD Code: Z87.19 - Personal history of other diseases of the digestive system Status: Acute (3) Alcohol abuse ICD Code: F10.10 - Alcohol abuse, uncomplicated Status: Acute (4) Tobacco abuse ICD Code: Z72.0 - Tobacco abuse Status: Acute Assessment and Plan Mr. Zayas is a pleasant 56 year old with a history of alcoholism, Hep C, liver cirrhosis who is admitted to psychiatry unit under avalos act due to suicidal ideations. - Suicidal ideations. - "no more" - Adjustment disorder with depression - Management per Psychiatry team - Liver cirrhosis - possibly due to alcoholism as well as Hep C. - Hepatitis C - Per patient, he has been treated for Hep C. - Last Abdominal US in 2015 showed no liver mass but showed liver cirrhosis. - US confirms cirrhosis, no mass, no ascites - Patient currently does not have any ascites. [facility] - continue Lasix, Spironolactone, Nadolol for now. These medications, if needed, can be adjusted by GI outpatient. - Alcohol abuse - Tobacco abuse - Patient has been counselled about quitting alcohol, tobacco. - Will start patient on Nicotine patch. - Continue CIWA protocol. Full code. Ambulation. [place] to drink mild "I drink a lot of milk" If DC- OP ff [facility] reinforced OP ff up - [facility] - Reena Ramsay MD Feb 14, 2017 11:55
[2017-02-14 18:14] VITALS: BP 114/65; PULSE 113; RESP 18; TEMP 99.4; O2SAT 97
[2017-02-14] MEDS: hydrOXYzine HCL 50 MG TAB PO PRN (19:47)
[2017-02-14] MEDS: MIRTAZAPINE 15 MG TAB PO SCH (20:47)
[2017-02-14] MEDS: lamoTRIgine 100 MG TAB PO SCH (20:47)
[2017-02-15] MEDS: hydrOXYzine HCL 50 MG TAB PO PRN ×2 (01:33→09:01)
[2017-02-15 05:37] VITALS: BP 114/59; PULSE 62; RESP 16; TEMP 99.1; O2SAT 96
[2017-02-15] MEDS: PANTOPRAZOLE SOD 20 MG DELAYED RELEASE TAB PO SCH (06:41)
[2017-02-15] MEDS: FUROSEMIDE 40 MG TAB PO SCH (08:59)
[2017-02-15] MEDS: CETIRIZINE HCL 10 MG TAB PO SCH (08:59)
[2017-02-15] MEDS: LACTULOSE SYRUP 20 GM/30 ML CUP PO SCH ×2 (08:59→13:35)
[2017-02-15] MEDS: NICOTINE 14 MG/24 HR PATCH T-DERMAL SCH (08:59)
[2017-02-15] MEDS: SPIRONOLACTONE 25 MG TAB PO SCH (08:59)
[2017-02-15] MEDS: BACLOFEN 10 MG TAB PO SCH ×2 (08:59→13:35)
[2017-02-15] MEDS: REMOVE OLD PATCH T-DERMAL SCH (09:00)
[2017-02-15] MEDS: SODIUM CHLORIDE 0.9% FLUSH 10 ML FLUSH IV FLUSH SCH (09:00)
[2017-02-15] MEDS: NADOLOL 20 MG TAB PO SCH (09:00)
[2017-02-15 12:01] VITALS: BP 124/66; PULSE 74
[2017-02-15] MEDS ORDERED: SPIR25 PO (13:27)
[2017-02-15] MEDS ORDERED: BACL10TA PO (13:27)
[2017-02-15] MEDS ORDERED: Lactulose Liq PO (13:27)
[2017-02-15] MEDS ORDERED: FURO40TA PO (13:27)
[2017-02-15] MEDS ORDERED: REME45TA PO (13:27)
[2017-02-15] MEDS ORDERED: NADO1TAB16 PO (13:27)
[2017-02-15] MEDS ORDERED: LAMO100 PO (13:27)
[2017-02-15] MEDS ORDERED: CETI10 PO (13:27)
[2017-02-15] MEDS ORDERED: PANT20 PO (13:27)
--- NOTE | 2017-02-15 13:34 | HHI.DS ---
Psychiatry Discharge Summary Inpatient Psychiatric care?: Yes Advance Directive: No Reason Not Provided: Patient declined Mental Health AdvanceDirective: No Health Care Proxy: No Admission Admission Date Feb 12, 2017 at 13:29 Admission Diagnosis: (1) Adjustment disorder with depressed mood ICD Code: F43.21 - Adjustment disorder with depressed mood Brief History 56-year-old male, , 100% disabled for physical and psychiatric reasons, presents under a Cooper act for suicidal ideation. Patient was here 3 days ago with similar complaints of suicidal ideation and was released. Apparently he carries a diagnosis of posttraumatic stress disorder. Additionally, his mother recently. Patient has been self-medicating with alcohol. He describes multiple symptoms of depression, including depressed mood, anhedonia, social withdrawal, suicidal ideation, anxiety, insomnia, decreased appetite, feelings of hopelessness and helplessness, decreased self-esteem, etc. He is but he and his are at this time, the patient is unable to contract for safety and because this is his second emergency department visit in 3 days, he is being admitted for further evaluation and treatment. Tobacco Use In Past 30 Days: 5 or More Cigarettes/Day Alcohol Use: 4 or More Times Per Week Hospital Course Patient's hospital course was uneventful, issue milieu from day 1. Sleep has improved his mood has improved. Patient seen today. Now denies suicidality homicidality voices or visions. He does wish to be discharged today so that he can get his was assessed together so he believes apartment by the eviction date in about 3 days. Results Blood Pressure 124 / 66 Vital Signs Date Time Temp Pulse Resp B/P (MAP) Pulse Ox O2 Delivery O2 Flow Rate FiO2 02/15/17 12:01 74 124/66 (85) 02/15/17 05:37 99.1 16 96 02/12/17 09:08 Room Air Laboratory Tests Test 02/13/17 07:10 White Blood Count 3.3 TH/MM3 (4.0-11.0) Platelet Count 61 TH/MM3 (150-450) Monocytes (%) (Auto) 9.1 % (0.0-8.0) Eosinophils (%) (Auto) 7.3 % (0.0-4.0) Basophils (%) (Auto) 2.4 % (0.0-2.0) Neutrophils # (Auto) 1.6 TH/MM3 (1.8-7.7) Random Glucose 110 MG/DL (74-106) Albumin 3.3 GM/DL (3.4-5.0) Alkaline Phosphatase 142 U/L (45-117) Total Bilirubin 1.3 MG/DL (0.2-1.0) Cholesterol Level 110 MG/DL (120-200) 25-Hydroxy Vitamin D Total 25.9 ng/ML (30-100) Laboratory Results Test 02/13/17 07:10 Cholesterol Level 110 MG/DL (120-200) HDL Cholesterol 44.5 MG/DL (40.0-60.0) Hemoglobin A1c 6.0 % (4.3-6.0) LDL Cholesterol 56 MG/DL (0-99) Triglycerides Level 48 MG/DL (42-150) Summary of Procedures None done Imaging Last Impressions Liver Ultrasound 02/13/17 0000 Signed Impressions: Service Date/Time: Monday, February 13, 2017 07:28 - CONCLUSION: 1. Cirrhotic appearing liver without significant focal mass or ascites. 2. Splenomegaly consistent with some degree of portal hypertension. 3. Gallbladder sludge with thickened gallbladder wall which is commonly seen in patients with chronic liver disease. Salas Freed MD Pending results at discharge: No Medications # of Antipsychotic meds at D/C: 0 Approp Antipsych med options 1 - Minimum of three failed multiple trials of monotherapy. 2 - Documented plan to taper to monotherapy due to previous use of multiple meds OR cross-taper in progress at D/C. 3 - Documentation of augmentation of Clozapine. 4 - Justification other than those listed in allowable values 1-3, document here : Discharge Discharge Date: Feb 15, 2017 Discharge Diagnosis: (1) Adjustment disorder with depressed mood Diagnosis: Principal ICD Code: F43.21 - Adjustment disorder with depressed mood Pt Condition on Discharge: Stable Discharge Disposition: Discharge Home Discharge Instructions Diet Instructions: As Tolerated, No Restrictions Activities you can perform: Regular-No Restrictions Scheduled Appointment: [place] outpatient clinic Discharge Time > 30 minutes Mental Status Examination Appearance: Appropriate Consciousness: Alert Orientation: x4 Motor Activity: Normal gait Speech: Unremarkable Language: Adequate Fund of Knowledge: Adequate Attention and Concentration: Adequate Memory: Unremarkable Mood: Sad Affect: Sad Thought Process & Associations: Intact Thought Content: Appropriate Hallucination Type: None Delusion Type: None Suicidal Ideation: Yes (denies today) Suicidal Plan: No Suicidal Intention: No Homicidal Ideation: No Homicidal Plan: No Homicidal Intention: No Insight: Fair Judgment: Impulsive Discharge/Advance Care Plan Health Problems: (1) Adjustment disorder with depressed mood (2) Alcohol abuse with intoxication Goals to promote your health * To prevent worsening of your condition and complications * To maintain your health at the optimal level Directions to meet your goals Take your medications as prescribed Follow your dietary instruction Follow activity as directed Keep your appointments as scheduled Take your immunizations and boosters as scheduled If your symptoms worsen call your PCP, if no PCP go to Urgent Care Center or Emergency Room For 16/10 questions related to your inpatient stay or results of tests pending at discharge, please contact Dr. Yassine Cheung at Smoking is Dangerous to Your Health. Avoid second hand smoking Yassine Cheung MD Feb 15, 2017 13:34
== END 2017-02-15 15:50 | disposition home or self-care (01) | DRG 881 ==
LOC: NEPJ 08:50 → NEDA 13:29 → H260 14:18 → H250 02-14 11:12
PROVIDERS: ADMIT Psychiatry & Neurology Psychiatry; ATTEND Psychiatry & Neurology Psychiatry
DX: F43.21 Adjustment disorder with depressed mood (principal); K76.6 Portal hypertension; R45.851 Suicidal ideations; F10.239 Alcohol dependence with withdrawal, unspecified; K74.60 Unspecified cirrhosis of liver; R16.1 Splenomegaly, not elsewhere classified; F10.229 Alcohol dependence with intoxication, unspecified; Y90.7 Blood alcohol level of 200-239 mg/100 ml; F12.90 Cannabis use, unspecified, uncomplicated; F17.210 Nicotine dependence, cigarettes, uncomplicated; F43.10 Post-traumatic stress disorder, unspecified; K21.9 Gastro-esophageal reflux disease without esophagitis
CPT/HCPCS: 76705; 80053; 80061; 80307; 82306; 82607; 82948; 83036; 84443; 85025; 93005; 99285

== ENCOUNTER 2017-08-09 03:29 | Observation (INO) | payer OTHER, MEDICARE ==
[2017-08-09] VITALS (7 sets, daily range): BP systolic 115–151; BP diastolic 62–70; PULSE 65–77; RESP 18–20; TEMP 98.1–98.5; O2SAT 90–95
[~2017-08-09 03:29] MED LIST changes: -AMPH1TAB29 PO; +BACL10TA PO; -DICL75TA PO; +FURO40TA PO; +HYDR-3133 PO; +LAMO100 PO; +Lactulose Liq PO; +MIRT45TA PO; +PANT20 PO; +REME45TA PO; +SPIR25 PO; -[UNRECOGNIZED DRUG - OTHER]; -[UNRECOGNIZED DRUG - REMARK]; -antidepressant; -water pill
[2017-08-09] MEDS ORDERED: OMEP20TA93 PO (03:57)
[2017-08-09] MEDS ORDERED: FOLI800T PO (03:57)
[2017-08-09] MEDS ORDERED: ACAM1TAB5 PO (03:57)
[2017-08-09] MEDS ORDERED: DICL1GEL7 TOPICAL (03:57)
[2017-08-09] MEDS ORDERED: LITH300C2 PO (03:57)
[2017-08-09] MEDS ORDERED: NALT50TA3 PO (03:57)
[2017-08-09] MEDS ORDERED: RISP1TAB2 PO (03:57)
[2017-08-09] MEDS ORDERED: MULTTAB67 PO (03:57)
[2017-08-09] MEDS ORDERED: SPIR25TA PO (03:57)
[2017-08-09] MEDS ORDERED: GABA100C4 PO (03:57)
[2017-08-09] MEDS ORDERED: VENTAER INH (03:57)
[2017-08-09] MEDS ORDERED: RANI300T PO (03:57)
[2017-08-09] MEDS ORDERED: XIFA550T4 PO (03:57)
[2017-08-09] MEDS ORDERED: TRAZ50TA12 PO (03:57)
[2017-08-09] MEDS ORDERED: VITA100T54 PO (03:57)
[2017-08-09] MEDS ORDERED: CETI10CH CHEW (03:57)
--- NOTE | 2017-08-09 03:59 | RADRPT ---
EXAM DATE/TIME: 08/09/2017 03:48 [facility] COMPARISON: CHEST SINGLE AP, April 07, 2016, 21:36. INDICATIONS : Chest pain. MEDICAL HISTORY : Cirrhosis. Hepatitis C. ETOH abuse. Esophageal varices. SURGICAL HISTORY : None. ENCOUNTER: Initial ACUITY: 1 day PAIN SCORE: 4/10 LOCATION: Bilateral chest FINDINGS: A single view of the chest demonstrates the lungs to be symmetrically aerated without evidence of mas s, infiltrate or effusion. Stable chronic interstitial changes at the bases. The cardiomediastinal c ontours are unremarkable. Osseous structures are intact. Cervical spinal fusion plate. Scoliotic tho racic spine. CONCLUSION: No acute disease. Elias Stein Jr., MD on August 09, 2017 at 3:55 Board Certified Radiologist. This report was verified electronically.
[2017-08-09 04:14] LABS: AUTOMATED NEUTROPHIL # 2.7 TH/MM3 (1.8-7.7); BASOPHIL # 0.1 TH/MM3 (0-0.2); BASOPHIL % 1.1 % (0.0-2.0); EOSINOPHIL # 0.4 TH/MM3 (0-0.4); EOSINOPHIL % 8.2 % (0.0-4.0); HEMATOCRIT 42.8 % (39.0-51.0); HEMOGLOBIN 14.8 GM/DL (13.0-17.0); LYMPH % 29.2 % (9.0-44.0); LYMPHOCYTE # 1.6 TH/MM3 (1.0-4.8); MEAN CELL VOLUME 89.7 FL (80.0-100.0); MEAN CORPUSCULAR HEMOGLOBIN 31.1 PG (27.0-34.0); MEAN CORPUSCULAR HGB CONC 34.7 % (32.0-36.0); MEAN PLATELET VOLUME 7.5 FL (7.0-11.0); MONO % 10.5 % (0.0-8.0); MONOCYTE # 0.6 TH/MM3 (0-0.9); PLATELET COUNT 87 TH/MM3 (150-450); RED BLOOD COUNT 4.78 MIL/MM3 (4.50-5.90); RED CELL DISTRIBUTION WIDTH 14.2 % (11.6-17.2); WHITE BLOOD COUNT 5.3 TH/MM3 (4.0-11.0)
[2017-08-09] MEDS ORDERED: LIDOCAINE VISCOUS 2% SOLN 15 ML UDC SWISH-SWAL STA (04:20)
[2017-08-09] MEDS ORDERED: FAMOTIDINE 20 MG/2 ML VIAL IV PUSH SCH (04:30)
[2017-08-09] MEDS ORDERED: ALUMINUM/MAGNESIUM/SIMETH 30 ML CUP PO ONE (04:30)
[2017-08-09] MEDS ORDERED: ASPIRIN 81 MG CHEW TAB CHEW ONE (04:30)
--- NOTE | 2017-08-09 04:30 | PD ---
HPI . CHEST PAIN Chief Complaint: Chest Pain Time Seen by Provider: 03:39 Travel History International Travel<30 days: No Contact w/Intl Traveler<30days: No Traveled to known affect area: No History of Present Illness HPI Patient is a 57-year-old male who awoke an hour prior to presentation to the ER with sudden onset of left-sided chest pain that radiates to his left arm. He took omeprazole think it could be GERD it did not relieve his symptoms the pain is sharp with radiation still present in the ER. He is holding his chest when I walk in the ER however he is not diaphoretic is not nauseous is not vomiting his BP within normal limits and his first EKG is normal sinus rhythm at a rate of [address] elevations or depressions he has a history of psychiatric illness as well as in the past alcohol abuse cirrhosis. He has not seen another doctor for this complaint and it started just prior to arrival within the hour PFSH Past Medical History Arthritis: Yes Anxiety: Yes Depression: Yes Heart Rhythm Problems: Yes (possibly afib) Cancer: No Cardiac Catheterization: No High Cholesterol: No Congestive Heart Failure: No Cirrhosis: Yes Diabetes: No Diminished Hearing: No Gastrointestinal Disorders: Yes (July 2015 Esophogeal varices. cauterized here) GERD: Yes Genitourinary: No Headaches: No Hepatitis: Yes (c) Hiatal Hernia: No Heparin Induced Thrombocytopen: No Hypertension: No Immune Disorder: No Implanted Vascular Access Dvce: No Musculoskeletal: Yes (chronic neck and back pain ) Neurologic: Yes Psychiatric: Yes (PTSD, chronic alcohol abuse) Reproductive: No Respiratory: No Seizures: No Thyroid Disease: No Ulcer: No Past Surgical History Arteriovenous Shunt: No Body Medical Devices: Had disc replacement in back, was removed. Coronary Artery Bypass Graft: No Insulin Pump: No Joint Replacement: No Neurologic Surgery: Yes (Spinal fusions C3-C7, neck and lower back x5) Oral Surgery: Yes (Tooth extractions) Pacemaker: No Tonsillectomy: Yes Other Surgery: Yes (LOW BACK SURGERY X 2) Family History Family Myocardial Infarction: Yes Social History Alcohol Use: Yes (FORMER-) Tobacco Use: Yes (1/2 PPD) Substance Use: Yes (occ marijuana) Allergies-Medications (Allergen,Severity, Reaction): Coded Allergies: No Known Allergies (Unverified Allergy, Unknown, 08/09/17) Per patient's spouse - Samantha Zayas [phone]. Reported Meds & Prescriptions Reported Meds & Active Scripts Active Lamictal (Lamotrigine) 100 Mg Tab 100 Mg PO HS [Lactulose Liq] 30 ML Syrp 15 Ml PO TID Furosemide 40 Mg Tab 40 Mg PO DAILY Baclofen 10 Mg Tab 10 Mg PO TID Reported Trazodone (Trazodone HCl) 50 Mg Tab 25 Mg PO HS Vitamin B-1 (Thiamine HCl) 100 Mg Tab 100 Mg PO DAILY Spironolactone 25 Mg Tab 25 Mg PO BIDPC Risperidone 1 Mg Tab 0.5 Mg PO Q12HR Xifaxan (Rifaximin) 550 Mg Tab 550 Mg PO Q12HR Ranitidine (Ranitidine HCl) 300 Mg Tab 300 Mg PO HS Omeprazole 20 Mg Tab 20 Mg PO DAILY Naltrexone (Naltrexone HCl) 50 Mg Tab 50 Mg PO DAILY Multiple Vitamin 1 Tab 1 Tab PO DAILY [place] Carbonate 300 Mg Cap 300 Mg PO BID Gabapentin 100 Mg Cap 100 Mg PO TID Folic Acid 0.8 Mg Tab 1,000 Mcg PO DAILY Diclofenac Topical 1% Gel 1 Applic TOPICAL QID Cetirizine (Cetirizine HCl) 10 Mg Chew 10 Mg CHEW DAILY Ventolin Hfa 18 GM Inh (Albuterol Sulfate) 90 Mcg/Act Aer 2 Puff INH Q4H PRN Acamprosate DR 333 Mg Tab 333 Mg PO TID Hydroxyzine HCl 25 Mg Tab 25 Mg PO BID PRN Review of Systems Except as stated in HPI: all other systems reviewed are Neg Cardiovascular: Positive: Chest Pain or Discomfort Respiratory: No: Cough Gastrointestinal: No: Nausea Physical Exam Narrative GENERAL: Nontoxic appearing awake alert no signs of diaphoresis no nausea no vomiting SKIN: Warm and dry. HEAD: Atraumatic. Normocephalic. EYES: Pupils equal and round. No scleral icterus. No injection or drainage. ENT: No nasal bleeding or discharge. Mucous membranes pink and moist. NECK: Trachea midline. No JVD. CARDIOVASCULAR: Regular rate and rhythm. EKG normal sinus rhythm at a rate of 66 reproducible chest pain in the left parasternal area RESPIRATORY: No accessory muscle use. Clear to auscultation. Breath sounds equal bilaterally. GASTROINTESTINAL: Abdomen soft, non-tender, nondistended. Hepatic and splenic margins not palpable. MUSCULOSKELETAL: Extremities without clubbing, cyanosis, or edema. No obvious deformities. NEUROLOGICAL: Awake and alert. No obvious cranial nerve deficits. Motor grossly within normal limits. Five out of 5 muscle strength in the arms and legs. Normal speech. PSYCHIATRIC: Appropriate mood and affect; insight and judgment normal. Data Data Last Documented VS Orders Orders Complete Blood Count With Diff (08/09/17 03:40) Comprehensive Metabolic Panel (08/09/17 03:40) Ckmb (Isoenzyme) Profile (08/09/17 03:40) Troponin I (08/09/17 03:40) Chest, Single Ap (08/09/17 03:40) Famotidine Inj (Pepcid Inj) (08/09/17 04:30) Al-Mag Hy-Si 40-40-4 Mg/Ml Liq (Mag-Al P (08/09/17 04:30) Lidocaine 2% Viscous (Xylocaine 2% Visco (08/09/17 04:20) Aspirin Chew (Aspirin Chew) (08/09/17 04:30) CKMB (08/09/17 04:01) CKMB% (08/09/17 04:01) Admit Order (Ed Use Only) (08/09/17 05:46) Labs Laboratory Tests Test 08/09/17 04:01 White Blood Count 5.3 TH/MM3 Red Blood Count 4.78 MIL/MM3 Hemoglobin 14.8 GM/DL Hematocrit 42.8 % Mean Corpuscular Volume 89.7 FL Mean Corpuscular Hemoglobin 31.1 PG Mean Corpuscular Hemoglobin Concent 34.7 % Red Cell Distribution Width 14.2 % Platelet Count 87 TH/MM3 Mean Platelet Volume 7.5 FL Neutrophils (%) (Auto) 51.0 % Lymphocytes (%) (Auto) 29.2 % Monocytes (%) (Auto) 10.5 % Eosinophils (%) (Auto) 8.2 % Basophils (%) (Auto) 1.1 % Neutrophils # (Auto) 2.7 TH/MM3 Lymphocytes # (Auto) 1.6 TH/MM3 Monocytes # (Auto) 0.6 TH/MM3 Eosinophils # (Auto) 0.4 TH/MM3 Basophils # (Auto) 0.1 TH/MM3 CBC Comment AUTO DIFF Differential Comment AUTO DIFF CONFIRMED Platelet Estimate LOW Platelet Morphology Comment NORMAL Blood Urea Nitrogen 10 MG/DL Creatinine 1.02 MG/DL Random Glucose 127 MG/DL Total Protein 7.4 GM/DL Albumin 3.5 GM/DL Calcium Level 8.7 MG/DL Alkaline Phosphatase 119 U/L Aspartate Amino Transf (AST/SGOT) 32 U/L Alanine Aminotransferase (ALT/SGPT) 24 U/L Total Bilirubin 1.0 MG/DL Sodium Level 139 MEQ/L Potassium Level 4.1 MEQ/L Chloride Level 109 MEQ/L Carbon Dioxide Level 22.1 MEQ/L Anion Gap 8 MEQ/L Estimat Glomerular Filtration Rate 75 ML/MIN Total Creatine Kinase 132 U/L Creatine Kinase MB 1.3 NG/ML Troponin I LESS THAN 0.02 NG/ML MDM Medical Decision Making Medical Screen Exam Complete: Yes Emergency Medical Condition: Yes Differential Diagnosis Differential diagnosis includes costochondritis versus chest pain of ischemic nature of CAD versus pneumonia versus pericarditis versus trauma versus muscle spasm Narrative Course EKG NSR and Trop negative pt stable enough for center admit and follow up trop and AM stress test ASA given in ER Diagnosis Primary Impression: Chest pain Qualified Codes: R07.9 - Chest pain, unspecified Admitting Information Admitting Physician Requests: Observation Thad Ozuna MD August 09, 2017 04:30
[2017-08-09 04:37] LABS: ALBUMIN 3.5 GM/DL (3.4-5.0); ALKALINE PHOSPHATASE 119 U/L (45-117); ALT (GPT) 24 U/L (12-78); AST (GOT) 32 U/L (15-37); BICARBONATE 22.1 MEQ/L (21.0-32.0); BLOOD UREA NITROGEN 10 MG/DL (7-18); CALCIUM 8.7 MG/DL (8.5-10.1); CHLORIDE 109 MEQ/L (98-107); CREATININE 1.02 MG/DL (0.60-1.30); GLOMERULAR FILTRATION RATE 75 ML/MIN (>89); GLUCOSE,RANDOM 127 MG/DL (74-106); SODIUM (NA) 139 MEQ/L (136-145); TOTAL PROTEIN 7.4 GM/DL (6.4-8.2); TROPONIN I LESS THAN 0.02 NG/ML (0.02-0.05)
[2017-08-09] MEDS ORDERED: SODIUM CHLORIDE 0.9% FLUSH 10 ML FLUSH IV FLUSH PRN (06:15)
[2017-08-09] MEDS ORDERED: KETOROLAC TROMETHAMINE 30 MG/ML (IVP) VIAL IV PUSH ONE (06:15)
--- NOTE | 2017-08-09 07:23 | EKG ---
Date Performed: 08/09/2017 Time Performed: 03:41:28 PTAGE: 57 years EKG: Sinus rhythm POSSIBLE RIGHT VENTRICULAR CONDUCTION DELAY MINIMAL VOLTAGE CRITERIA FOR LVH, CONSIDER NORMAL VARIAN T BORDERLINE ECG Since PREVIOUS TRACING , no significant change noted PREVIOUS TRACIN02/13/2017 12.49 DOCTOR: Danyelle Hoover Interpretating Date/Time 08/09/2017 07:21:59
[2017-08-09] MEDS ORDERED: RESP: ALBUTEROL 2.5 MG/IPRATROPIUM 0.5 MG NEB (SCH) INH ONE (08:30)
[2017-08-09] MEDS ORDERED: RESP: ALBUTEROL 2.5 MG/IPRATROPIUM 0.5 MG NEB (PRN) INH (08:30)
[2017-08-09] MEDS ORDERED: SODIUM CHLORIDE 0.9% FLUSH 10 ML FLUSH IV FLUSH SCH (09:00)
[2017-08-09 09:10] LABS: TROPONIN I LESS THAN 0.02 NG/ML (0.02-0.05)
[2017-08-09] MEDS ORDERED: hydrOXYzine HCL 25 MG TAB PO PRN (09:45)
[2017-08-09] MEDS ORDERED: SPIRONOLACTONE 25 MG TAB PO SCH (09:45)
[2017-08-09] MEDS ORDERED: LITHIUM CARBONATE 300 MG CAP PO SCH (09:45)
[2017-08-09] MEDS ORDERED: THIAMINE HCL 100 MG TAB PO SCH (09:45)
[2017-08-09] MEDS ORDERED: risperiDONE 0.5 MG TAB PO SCH (10:00)
--- NOTE | 2017-08-09 10:01 | HHI.HP ---
HPI Primary Care Physician [facility] Chief Complaint Chest pain History of Present Illness This is a 57-year-old male that presents to ED with a complaint of developing a left-sided chest discomfort that radiated to his left arm. It woke him last evening. States lasted a few hours. He took a naproxen omeprazole but did not change his symptoms. Currently denies chest discomfort. Denied shortness of breath, nausea, or diaphoresis. Denies having history of CAD. I reviewed records. He had a ischemic Lexiscan November 2015 followed by a cardiac catheterization revealing minimal disease. Medical management was treatment plan. Continues medical follow-up at the [facility]. Does not follow a coding specialist. Voices compliance with his medications. Review of Systems General: Patient denies fevers, chills, and recent travel. HEENT: Patient denies headache, sore throat, difficulty swallowing. Cardiovascular: Has the chest discomfort as mentioned above. Denies sensation of heart beating rapidly or irregularly. No syncope. Denies diaphoresis. Respiratory: Denies shortness of breath or inspirational chest discomfort. Denies coughing wheezing or hemoptysis. GI: Patient denies nausea, vomiting, diarrhea, abdominal pain, bloody stools. Musculoskeletal: Patient denies joint pain or edema. Denies calf pain or edema. Neurovascular: Patient denies numbness, tingling, weakness in extremities. Denies headache. Endocrine: Denies polyuria and polydipsia. Hematologic: Denies easy bruising. Skin: Denies rash or itching. Past Family Social History Allergies: Coded Allergies: No Known Allergies (Unverified Allergy, Unknown, 08/09/17) Per patient's spouse - Samantha Zayas [phone]. Past Medical History GERD, liver cirrhosis, bipolar disorder, PTSD, hepatitis C however he states he finished treatment 2015 and is currently undetectable, history of small gastric varices via EGD July 2015, tobacco abuse, and stated diet-controlled diabetic. Denies hypertension, hyperlipidemia. Past Surgical History Neck surgery. Back surgery. Tonsillectomy. EGD and colonoscopy. Reported Medications Reported Meds & Active Scripts Active Lamictal (Lamotrigine) 100 Mg Tab 100 Mg PO HS [Lactulose Liq] 30 ML Syrp 15 Ml PO TID Furosemide 40 Mg Tab 40 Mg PO DAILY Baclofen 10 Mg Tab 10 Mg PO TID Reported Trazodone (Trazodone HCl) 50 Mg Tab 25 Mg PO HS Vitamin B-1 (Thiamine HCl) 100 Mg Tab 100 Mg PO DAILY Spironolactone 25 Mg Tab 25 Mg PO BIDPC Risperidone 1 Mg Tab 0.5 Mg PO Q12HR Xifaxan (Rifaximin) 550 Mg Tab 550 Mg PO Q12HR Ranitidine (Ranitidine HCl) 300 Mg Tab 300 Mg PO HS Omeprazole 20 Mg Tab 20 Mg PO DAILY Naltrexone (Naltrexone HCl) 50 Mg Tab 50 Mg PO DAILY Multiple Vitamin 1 Tab 1 Tab PO DAILY [place] Carbonate 300 Mg Cap 300 Mg PO BID Gabapentin 100 Mg Cap 100 Mg PO TID Folic Acid 0.8 Mg Tab 1,000 Mcg PO DAILY Diclofenac Topical 1% Gel 1 Applic TOPICAL QID Cetirizine (Cetirizine HCl) 10 Mg Chew 10 Mg CHEW DAILY Ventolin Hfa 18 GM Inh (Albuterol Sulfate) 90 Mcg/Act Aer 2 Puff INH Q4H PRN Acamprosate DR 333 Mg Tab 333 Mg PO TID Hydroxyzine HCl 25 Mg Tab 25 Mg PO BID PRN Active Ordered Medications Current Medications Medications (Trade) Dose Ordered Sig/Samy Route Start Time Stop Time Status Last Admin (Pepcid Inj) 20 mg ONCE IV PUSH 08/09/17 04:30 08/09/17 04:30 (NS Flush) 2 ml UNSCH PRN IV FLUSH 08/09/17 06:15 (NS Flush) 2 ml BID IV FLUSH 08/09/17 09:00 (Duoneb Neb) 1 ampule Q4HR NEB PRN INH 08/09/17 08:30 (Lioresal) 10 mg TID PO 08/09/17 13:00 UNV (ZyrTEC) 10 mg DAILY PO 08/10/17 09:00 UNV (Folate) 1 mg DAILY PO 08/10/17 09:00 UNV (Lasix) 40 mg DAILY PO 08/10/17 09:00 UNV (Neurontin) 100 mg TID PO 08/09/17 13:00 UNV (Atarax) 25 mg BID PRN PO 08/09/17 09:45 UNV (LaMICtal) 100 mg HS PO 08/09/17 21:00 UNV ([place] Carbonate) 300 mg BID PO 5/17/18 09:45 UNV (Xifaxan) 550 mg Q12HR PO 08/09/17 21:00 UNV (Aldactone) 25 mg BIDPC PO 08/09/17 09:45 UNV (Vitamin B1) 100 mg DAILY PO 08/09/17 09:45 UNV Non-Formulary Medication 1 tab DAILY PO 08/09/17 09:45 UNV Non-Formulary Medication 20 mg DAILY PO 08/09/17 09:45 UNV Non-Formulary Medication 300 mg HS PO 08/09/17 21:00 UNV Non-Formulary Medication 15 ml TID PO 08/09/17 13:00 UNV (risperDAL) 0.5 mg Q12HR PO 08/09/17 10:00 UNV (Desyrel) 25 mg HS PO 08/09/17 21:00 UNV Family History States his father at age 50 of a myocardial infarction. Social History Smokes one half pack a series daily for the past 3 months. Prior to that he smoked 1 pack cigarettes daily for 45 years. States had no alcohol for 4 months. Has marijuana daily. Physical Exam Vital Signs Vital Signs Date Time Temp Pulse Resp B/P (MAP) Pulse Ox O2 Delivery O2 Flow Rate FiO2 08/09/17 08:28 95 21 08/09/17 07:49 98.1 65 18 119/63 (81) 95 08/09/17 06:47 08/09/17 06:16 21 08/09/17 06:09 70 18 95 Nasal Cannula 2.00 08/09/17 06:08 77 18 115/62 (79) 90 Room Air 08/09/17 03:57 66 18 144/67 (92) 95 Room Air 08/09/17 03:35 98.4 67 20 151/70 (97) 95 Physical Exam * GENERAL: This is a well-nourished, well-developed patient, in no apparent distress. Patient speaks in clear complete sentences. Patient is pleasant. HEENT: Head is atraumatic and normocephalic. Neck is supple without lymphadenopathy and trachea is midline. No JVD or carotid bruits. CARDIOVASCULAR: Regular rate and rhythm without murmurs, gallops, or rubs. RESPIRATORY: Clear to auscultation. Breath sounds equal bilaterally. No wheezes , rales, or rhonchi. Chest wall is nontender. No use of accessory muscles. GASTROINTESTINAL: Abdomen is nontender, nondistended. Abdomen soft. No obvious pulsatile mass or bruit. No CVA tenderness. Strong femoral pulses bilaterally. Normal bowel sounds in all quadrants. MUSCULOSKELETAL: Patient is moving upper and lower extremities freely. No calf tenderness or edema, no Homans sign. Strong pulses in upper and lower extremities. NEUROLOGICAL: Patient is alert and oriented. Cranial nerves 2-12 are grossly intact. No focal deficits and speech is clear. SKIN: No rash and turgor is normal. Laboratory Laboratory Tests Test 08/09/17 04:01 08/09/17 07:45 White Blood Count 5.3 Red Blood Count 4.78 Hemoglobin 14.8 Hematocrit 42.8 Mean Corpuscular Volume 89.7 Mean Corpuscular Hemoglobin 31.1 Mean Corpuscular Hemoglobin Concent 34.7 Red Cell Distribution Width 14.2 Platelet Count 87 Mean Platelet Volume 7.5 Neutrophils (%) (Auto) 51.0 Lymphocytes (%) (Auto) 29.2 Monocytes (%) (Auto) 10.5 Eosinophils (%) (Auto) 8.2 Basophils (%) (Auto) 1.1 Neutrophils # (Auto) 2.7 Lymphocytes # (Auto) 1.6 Monocytes # (Auto) 0.6 Eosinophils # (Auto) 0.4 Basophils # (Auto) 0.1 CBC Comment AUTO DIFF Differential Comment AUTO DIFF CONFIRMED Platelet Estimate LOW Platelet Morphology Comment NORMAL Blood Urea Nitrogen 10 Creatinine 1.02 Random Glucose 127 Total Protein 7.4 Albumin 3.5 Calcium Level 8.7 Alkaline Phosphatase 119 Aspartate Amino Transf (AST/SGOT) 32 Alanine Aminotransferase (ALT/SGPT) 24 Total Bilirubin 1.0 Sodium Level 139 Potassium Level 4.1 Chloride Level 109 Carbon Dioxide Level 22.1 Anion Gap 8 Estimat Glomerular Filtration Rate 75 Total Creatine Kinase 132 98 Creatine Kinase MB 1.3 Troponin I LESS THAN 0.02 LESS THAN 0.02 Result Diagram: 08/09/17 0401 08/09/17 0401 Imaging Last 48 hours Impressions Chest X-Ray 08/09/17 0340 Signed Impressions: Service Date/Time: July 03:48 - CONCLUSION: No acute disease. Elias Stein Jr., MD Course EKGs are sinus rhythm without significant ST segment depressions or elevations. Caprini VTE Risk Assessment Caprini VTE Risk Assessment: No/Low Risk (score <= 1) Caprini Risk Assessment Model Point Value = 1 Point Value = 2 Point Value = 3 Point Value = 5 Age 41-60 Minor surgery BMI > 25 kg/m2 Swollen legs Varicose veins or History of unexplained or recurrent spontaneous Oral contraceptives or hormone replacement Sepsis (< 1 month) Serious lung disease, including pneumonia (< 1 month) Abnormal pulmonary function Acute myocardial infarction Congestive heart failure (< 1 month) History of inflammatory bowel disease Medical patient at bed rest Age 61-74 Arthroscopic surgery Major open surgery (> 45 min) Laparoscopic surgery (> 45 min) Malignancy Confined to bed (> 72 hours) Immobilizing plaster cast Central venous access Age >= 75 History of VTE Family history of VTE Factor V Leiden Prothrombin [id number] Lupus anticoagulant Anticardiolipin antibodies Elevated serum homocysteine Heparin-induced thrombocytopenia Other congenital or acquired thrombophilia Stroke (< 1 month) Elective arthroplasty Hip, pelvis, or leg fracture Acute spinal cord injury (< 1 month) Prophylaxis Regimen Total Risk Factor Score Risk Level Prophylaxis Regimen 0-1 Low Early ambulation 2 Moderate Order ONE of the following: *Sequential Compression Device (SCD) *Heparin 5000 units SQ BID 3-4 Higher Order ONE of the following medications: *Heparin 5000 units SQ TID *Enoxaparin/Lovenox 40 mg SQ daily (WT < 150 kg, CrCl > 30 mL/min) *Enoxaparin/Lovenox 30 mg SQ daily (WT < 150 kg, CrCl > 10-29 mL/min) *Enoxaparin/Lovenox 30 mg SQ BID (WT < 150 kg, CrCl > 30 mL/min) AND/OR *Sequential Compression Device (SCD) 5 or more Highest Order ONE of the following medications: *Heparin 5000 units SQ TID (Preferred with Epidurals) *Enoxaparin/Lovenox 40 mg SQ daily (WT < 150 kg, CrCl > 30 mL/min) *Enoxaparin/Lovenox 30 mg SQ daily (WT < 150 kg, CrCl > 10-29 mL/min) *Enoxaparin/Lovenox 30 mg SQ BID (WT < 150 kg, CrCl > 30 mL/min) AND *Sequential Compression Device (SCD) Assessment and Plan Assessment and Plan * Chest pain: Patient has had serial cardiac enzymes and EKGs for ruling out purposes. He was seen by Dr. Hoover of cardiology in the chest pain center and will have a Lexiscan. Patient will be discharged home if his stress test is nonischemic with instructions to follow-up with PCP. Return to ED for interval issues. * GERD: Continue medication. * Diabetes: Patient states he is diet controlled. He will be on sliding scale insulin coverage while in chest pain center. She will follow diabetic diet. * Bipolar disorder: Continue medication. * Tobacco abuse: Patient has been counseled on importance of smoking cessation. Patient is stable at this time. He is agreeable to this plan. Paulino Rees August 09, 2017 10:01
--- NOTE | 2017-08-09 10:03 | HHI.DCPOC ---
Discharge Care Plan Diagnosis: (1) Chest pain (2) GERD (gastroesophageal reflux disease) (3) Tobacco abuse (4) History of cirrhosis Goals to Promote Your Health * To prevent worsening of your condition and complications * To maintain your health at the optimal level Directions to Meet Your Goals Take your medications as prescribed Follow your dietary instruction Follow activity as directed Keep your appointments as scheduled Take your immunizations and boosters as scheduled If your symptoms worsen call your PCP, if no PCP go to Urgent Care Center or Emergency Room Smoking is Dangerous to Your Health. Avoid second hand smoke Call the 24-hour hour crisis hotline for domestic abuse at Paulino Rees August 09, 2017 10:03
[2017-08-09] MEDS ORDERED: PANTOPRAZOLE SOD 20 MG DELAYED RELEASE TAB PO SCH (10:15)
[2017-08-09] MEDS ORDERED: MULTIVITAMIN TAB PO SCH (10:15)
[2017-08-09] MEDS ORDERED: REGADENOSON INJ 0.4 MG/5 ML SYR ONE (11:18)
[2017-08-09] MEDS ORDERED: LACTULOSE SYRUP 20 GM/30 ML CUP PO SCH (13:00)
[2017-08-09] MEDS ORDERED: BACLOFEN 10 MG TAB PO SCH (13:00)
[2017-08-09] MEDS ORDERED: GABAPENTIN 100 MG CAP PO SCH (13:00)
--- NOTE | 2017-08-09 13:12 | RADRPT ---
EXAM DATE/TIME: 08/09/2017 11:14 [facility] COMPARISON: MYOCARDIAL PERF PHARM SPECT, GATED W/EF, December 24, 2015, 9:13. INDICATIONS : Left sided chest pain radiating to left arm. Angina. DOSE: 26.2 mCi Tc99m Myoview at stress. 8.1 mCi Tc99m Myoview at rest. 0.4 mg Lexiscan STRESS SYMPTOMS: None. EJECTION FRACTION: 67% MEDICAL HISTORY : Hepatitis C. Hypertension. SURGICAL HISTORY : Neck surgery. ENCOUNTER: Initial ACUITY: 1 day PAIN SCALE: 2/10 LOCATION: Left chest TECHNIQUE: The patient underwent pharmacologic stress with infusion of prescribed dose. Continuous ECG tracing was monitored during stress. Gated SPECT imaging was performed after stress and conventional SPECT i maging was performed at rest. The examination was performed on a SPECT/CT scanner, both attenuation and non-corrected datasets were reviewed. FINDINGS: DISTRIBUTION: The maximum perfused segment at stress is in the septal wall. PERFUSION STUDY: The pattern of perfusion at stress is within normal limits. GATED STUDY: There is intact wall motion and thickening without hypokinetic or dyskinetic segments. CONCLUSION: Unremarkable myocardial perfusion examination. RISK CATEGORY: Low Srinivas Dia MD on August 09, 2017 at 13:09 Board Certified Radiologist. This report was verified electronically.
[2017-08-09] MEDS ORDERED: FAMOTIDINE 20 MG TAB PO SCH (21:00)
[2017-08-09] MEDS ORDERED: RIFAXIMIN 550 MG TAB PO SCH (21:00)
[2017-08-09] MEDS ORDERED: traZODone HCL 50 MG TAB PO SCH (21:00)
[2017-08-09] MEDS ORDERED: lamoTRIgine 100 MG TAB PO SCH (21:00)
--- NOTE | 2017-08-09 22:08 | EKG ---
Date Performed: 08/09/2017 Time Performed: 08:05:25 PTAGE: 57 years EKG: Sinus rhythm POSSIBLE RIGHT VENTRICULAR CONDUCTION DELAY BORDERLINE ECG Since PREVIOUS TRACING , no significant change noted PREVIOUS TRACIN08/09/2017 03.41 DOCTOR: Danyelle Hoover Interpretating Date/Time 08/09/2017 22:08:06
--- NOTE | 2017-08-09 22:11 | TR ---
Date Performed: 08/09/2017 Time Performed: 11:45:42 DOCTOR: Danyelle Hoover DRUG LIST: CLINICAL HISTORY: REASON FOR TEST: REASON FOR ENDING: OBSERVATION: CONCLUSION: Lexiscan stress test was performed under standard four minute protocol. Radionuclid e was injected one minute prior to ending the test. No electrocardiographic abormalities were present to suggest ischemia. Nuclear imaging and interpretation are pending. COMMENTS: no ischemia
[2017-08-10] MEDS ORDERED: FOLIC ACID 1 MG TAB PO SCH (09:00)
[2017-08-10] MEDS ORDERED: CETIRIZINE HCL 10 MG TAB PO SCH (09:00)
[2017-08-10] MEDS ORDERED: FUROSEMIDE 40 MG TAB PO SCH (09:00)
== END 2017-08-09 15:36 | disposition home or self-care (01) ==
LOC: NEPE 03:29 → NEDA 05:47 → NEPHCDU 06:33
PROVIDERS: ADMIT Internal Medicine Cardiovascular Disease; ATTEND Internal Medicine Cardiovascular Disease
DX: R07.89 Other chest pain (principal); K21.9 Gastro-esophageal reflux disease without esophagitis; F17.200 Nicotine dependence, unspecified, uncomplicated; K74.60 Unspecified cirrhosis of liver; E11.9 Type 2 diabetes mellitus without complications; I86.4 Gastric varices; B19.20 Unspecified viral hepatitis C without hepatic coma; F12.90 Cannabis use, unspecified, uncomplicated; I85.00 Esophageal varices without bleeding; F31.9 Bipolar disorder, unspecified; F10.10 Alcohol abuse, uncomplicated; I10 Essential (primary) hypertension; I20.9 Angina pectoris, unspecified
CPT/HCPCS: 71045; 78452; 80053; 82550; 82552; 84484; 85025; 93005; 93017; 94664; 96374; 96375; 99285; A9502; G0378; J1885; J2785